=== PATIENT | male | born 1930 | race Caucasian/White ===

== ENCOUNTER 2017-02-22 19:52 | Observation (INO) | payer MEDICARE ==
[2017-02-22] MEDS ORDERED: Sodium Chloride 0.9% 10 ML Syringe FLUSH PRN (20:17)
[2017-02-22] MEDS ORDERED: cefTRIAXone 500 MG Vial IVPUSH ONE (21:54)
[2017-02-22] MEDS ORDERED: Azithromycin 500 MG in Sodium Chloride 0.9% 250 ML IV SCH (22:00)
[2017-02-22] MEDS ORDERED: Sodium Chloride 0.9% 250 ML IV SCH (22:30)
[2017-02-22] MEDS ORDERED: cefTRIAXone 1,000 MG in Sodium Chloride 0.9% 50 ML IV ONE (22:30)
[2017-02-22] MEDS ORDERED: OLANZapine 10 MG Vial IM PRN (22:37)
--- NOTE | 2017-02-23 02:48 | ER ---
DATE SEEN: 02/22/2017 TIME SEEN: 2030 hours. REASON FOR VISIT: Chills. HISTORY OF PRESENT ILLNESS: This is an 86-year-old male with chills that started tonight, but over the last 2 days he has been weak and difficult to take care of at home. No fever. His mentation was noted to be a little different today saying that he feels like he was flying. He denies any chest pain. No cough. No fever. PAST MEDICAL HISTORY: Dementia, coronary artery disease, hyperlipidemia, and CHF. CURRENT MEDICATIONS: Please see the nurse's notes. PHYSICAL EXAMINATION: GENERAL: He is not in distress. VITAL SIGNS: His blood pressure is 157/76, pulse 68, temp 97.7, oxygen 97% on room air. EARS, NOSE, and THROAT: Negative. CHEST: Clear with some crackles on the lower bases on the right. ABDOMEN: Soft. EXTREMITIES: No edema. MENTAL STATUS: Alert. LABORATORY DATA: Normal white cell count. Sodium is 134, creatinine is 1.6. Chest x-ray revealed possibly an infiltrate on the right side. IMPRESSION: Community-acquired pneumonia. His PSI is about 85. PLAN: I will admit him for IV antibiotic and observation for a day or so, I may be possibly discharge him tomorrow. /[id number] LUIS ANTONIO/BREANNA
--- NOTE | 2017-02-23 09:22 | PCM.HP ---
H&P History of Present Illness - General Date of Service: 02/23/17 Admit Problem/Dx: Admission Diagnosis/Problem Admission Diagnosis/Problem Pneumonia Source of Information: Family History Limitations: Reports: Altered Mental Status - History of Present Illness Initial Comments - Free Text/Narative: 86-year-old male from home, admitted last night because of acute pneumonia. He presented to the ER with the family with chills rigors, and alteration of his mental status. He also complained of generalized weakness for 2 days but there was no report of any fever or cough. He did however have some shortness of breath on ambulation. He has a history of CHF, CAD, dementia, hypertension and typically doctors at the [facility]. - Related Data Allergies/Adverse Reactions: Allergies Allergy/AdvReac Type Severity Reaction Status Date / Time lisinopril Allergy Cannot Verified 02/23/17 01:50 Remember Home Medications: Home Meds Albuterol Sulfate 2.5 mg IH Q6H PRN 02/23/17 [History] Carbidopa/Levodopa [Sinemet 25-100 mg Tablet] 2 tab PO BEDTIME 02/23/17 [History ] Gabapentin [Neurontin] 100 mg PO BEDTIME 02/23/17 [History] Hydrochlorothiazide 12.5 mg PO DAILY 02/23/17 [History] Losartan [Cozaar] 50 mg PO DAILY 02/23/17 [History] Metoprolol Tartrate 50 mg PO BID 02/23/17 [History] Rivaroxaban [Xarelto] 20 mg PO DAILY 02/23/17 [History] Past Medical History Cardiovascular History: Reports: Aneurysm, High cholesterol, Hypertension, [place], Stents Genitourinary History: Reports: Urinary incontinence Musculoskeletal History: Reports: Other (see below) Other Musculoskeletal History: restless leg syndrome Neurological History: Reports: Alzheimers disease, TIA Psychiatric History: Reports: Anxiety, Dementia - Infectious Disease History Infectious Disease History: Reports: Chicken pox, Measles, Shingles - Past Surgical History Cardiovascular Surgical History: Reports: AAA repair, Coronary artery stent GI Surgical History: Reports: Appendectomy, Other (see below) Other GI Surgeries/Procedures: exploratory surg Musculoskeletal Surgical History: Reports: Other (see below) Other Musculoskeletal Surgeries/Procedures:: bone graft from leg to arm Social & Family History - Tobacco Use Smoking Status *Q: Former Smoker Used Tobacco, but Quit: Yes Month Tobacco Last Used: 1984 Second Hand Smoke Exposure: No - Caffeine Use Caffeine Use: Reports: Coffee - Recreational Drug Use Recreational Drug Use: No H&P Review of Systems - Review of Systems: Review Of Systems: ROS reveals no pertinent complaints other than HPI. Exam - Exam Exam: See Below - Vital Signs Vital Signs: Last Vital Signs Temp 98 F 02/22/17 22:15 Pulse 56 L 02/23/17 05:45 Resp 20 02/23/17 05:45 BP 137/74 02/22/17 22:15 Pulse Ox 95 02/23/17 05:45 Weight: 87.18 kg - Exam General: Alert, Oriented, 4 HEENT: PERRLA, Hearing Intact, Mucosa Moist & Interior, Nares Patent, Normal Nasal Septum, Posterior Pharynx Clear, Conjunctiva Clear, EOMI, EACs Clear, TMs Clear Neck: Supple, Trachea Midline, 2 Lungs: Clear to Auscultation, Normal Respiratory Effort Cardiovascular: Regular Rate, Regular Rhythm Abdomen: Normal Bowel Sounds, Soft (Male) Exam: Deferred Rectal (Males) Exam: Deferred Back Exam: Normal Inspection, Full Range of Motion, NT Extremities: 3, Normal Inspection, 10 Skin: Warm, Dry, Intact Neurological: Cranial Nerves Intact, Reflexes Equal Bilateral Neuro Extensive - Mental Status: Disorientation to Time Neuro Extensive - Motor, Sensory, Reflexes: CN II-XII Intact, Normal Gait, Normal Reflexes Psychiatric: Normal Affect, Anxious - Patient Data Lab Results last 24 hrs: Laboratory Results - last 24 hr 02/23/17 02/23/17 Range/Units 06:30 06:30 WBC 7.1 (4.5-12.0) X10-3/uL RBC 4.69 (4.30-5.75) x10(6)uL Hgb 14.1 (11.5-15.5) g/dL Hct 41.8 (30.0-51.3) % MCV 89.2 (80-96) fL MCH 30.1 (27.7-33.6) pg MCHC 33.7 (32.2-35.4) g/dL RDW 12.2 (11.5-15.5) % Plt Count 176 (125-369) X10(3)uL MPV 8.4 (7.4-10.4) fL Neut % (Auto) 74.0 (46-82) % Lymph % (Auto) 16.6 (13-37) % [place] % (Auto) 6.7 (4-12) % Eos % (Auto) 2 (1.0-5.0) % Baso % (Auto) 1 (0-2) % Neut # (Auto) 5.3 (1.6-8.3) # Lymph # (Auto) 1.2 (0.6-5.0) # [place] # (Auto) 0.5 (0.0-1.3) # Eos # (Auto) 0.1 (0.0-0.8) # Baso # (Auto) 0.0 (0.0-0.2) # Sodium 135 (135-145) mmol/L Potassium 3.8 (3.5-5.3) mmol/L Chloride 103 (100-110) mmol/L Carbon Dioxide 24 (23-29) mmol/L BUN 29 H (8-23) mg/dL Creatinine 1.4 H (0.6-1.3) mg/dL Est Cr Clr Drug Dosing 32.30 mL/min Estimated GFR (MDRD) 48 L (>60) BUN/Creatinine Ratio 20.7 H (9-20) Glucose 112 (80-116) mg/dL Calcium 9.1 (8.6-10.2) mg/dL Total Bilirubin 0.7 (0.1-1.3) mg/dL AST 30 H (5-27) IU/L ALT 13 L (14-26) IU/L Alkaline Phosphatase 43 L (56-112) IU/L Total Protein 7.3 (6.0-8.0) g/dL Albumin 4.2 (3.2-4.6) g/dL Globulin 3.1 g/dL Albumin/Globulin Ratio 1.4 Result Diagrams: 02/23/17 06:30 02/23/17 06:30 *Q Meaningful Use (ADM) - VTE *Q VTE Criteria *Q: - Stroke *Q Stroke Criteria *Q: - AMI *Q AMI Criteria *Q: - Problem List (1) Community acquired bacterial pneumonia SNOMED Code(s): 771175381, 725715098 ICD Code: J15.9 - UNSPECIFIED BACTERIAL PNEUMONIA Status: Acute Current Visit: Yes (2) Dementia SNOMED Code(s): 47379358 ICD Code: F03.90 - UNSPECIFIED DEMENTIA WITHOUT BEHAVIORAL DISTURBANCE Status: Acute Current Visit: Yes Qualifiers: Dementia type: Alzheimer's disease (3) CAD (coronary artery disease) SNOMED Code(s): 84239918 ICD Code: I25.10 - ATHSCL HEART DISEASE OF [place] CORONARY ARTERY W/O ANG PCTRS Status: Chronic Current Visit: Yes Problem List Initiated/Reviewed/Updated: Yes Orders Last 24hrs: Active Orders 24 hr Category Date Time Status OLANZapine [ZyPREXA] Med 02/22/17 22:37 Active 5 mg IM Q6H PRN Sodium Chloride 0.9% [Normal Saline] 150 ml Med 02/22/17 23:30 Active IV ASDIRECTED Sodium Chloride 0.9% [Normal Saline] 250 ml Med 02/22/17 22:30 Active IV ASDIRECTED Medication Orders Azithromycin 500 mg/ Sodium (Chloride) 250 mls @ 250 mls/hr IV Q24H INGE Last Admin: 02/22/17 23:24 Dose: 250 mls/hr Sodium Chloride (Normal Saline) 250 mls @ 100 mls/hr IV ASDIRECTED INGE Last Admin: 02/22/17 22:35 Dose: 100 mls/hr Sodium Chloride (Normal Saline) 150 mls @ 100 mls/hr IV ASDIRECTED INGE Olanzapine (Zyprexa) 5 mg IM Q6H PRN PRN Reason: Agitation Sodium Chloride (Saline Flush) 10 ml FLUSH ASDIRECTED PRN PRN Reason: Keep Vein Open Last Admin: 02/22/17 21:14 Dose: 10 ml Assessment/Plan Comment:: This morning he feels better, he denies any chest pain chills,or a cough. He's been afebrile all night and slept well. His creatinine has come down to 1.4. I will discharge him home on oral azithromycin to take 250 mg daily for the next 4 days.He should seek he regular physician next week or return to the ED with any worsening symptoms.
[2017-02-23 10:25] VITALS: BP 124/72
--- NOTE | 2017-02-26 12:31 | CR ---
INDICATION: Weakness, shaky. CHEST: Portable AP upright view of the chest 02/22/2017, was compared with and 01/06/2013, revealing the heart to appear prominent in size, but not grossly enlarged, allowing for the AP positioning and poor inspiration. The aorta is tortuous and calcified. Overlying EKG leads are noted. An active infiltrate or effusion was not identified. Lungs appear to be somewhat hyperaerated, suggesting COPD - correlate clinically. IMPRESSION: No acute process. Findings as noted above. MTDD
== END 2017-02-23 10:15 | disposition home health service (06) ==
LOC: FB.ED 19:52 → FB.MS 21:54
PROVIDERS: ADMIT Family Medicine; ATTEND Family Medicine
DX: J15.9 Unspecified bacterial pneumonia (principal); F03.90 Unspecified dementia, unspecified severity, without behavioral disturbance, psychotic disturbance, mood disturbance, and anxiety; I25.10 Atherosclerotic heart disease of native coronary artery without angina pectoris; Z95.5 Presence of coronary angioplasty implant and graft; Z90.49 Acquired absence of other specified parts of digestive tract; Z98.890 Other specified postprocedural states; I10 Essential (primary) hypertension; F41.9 Anxiety disorder, unspecified; Z79.899 Other long term (current) drug therapy; Z87.891 Personal history of nicotine dependence; Z88.8 Allergy status to other drugs, medicaments and biological substances
CPT/HCPCS: 36415; 71010; 80048; 80053; 83880; 84484; 85025; 93005; 96365; 96367; 99284; G0378; J0456; J0696; J7050; 99219

== ENCOUNTER 2017-07-12 16:32 | Observation (INO) | payer MEDICAID, MEDICARE, OTHER ==
[2017-07-12] MEDS ORDERED: Sodium Chloride 0.9% 500 ML IV ONE (17:01)
--- NOTE | 2017-07-12 17:07 | EDM.PDOC ---
ED HPI GENERAL MEDICAL PROBLEM - General Stated Complaint: SYNCOPE Time Seen by Provider: 07/12/17 16:32 Source of Information: Reports: Patient, EMS History Limitations: Reports: Altered Mental Status, Physical Impairment - History of Present Illness INITIAL COMMENTS - FREE TEXT/NARRATIVE: 86 y.o.w.m. with H/O Dementia, Alzheimer type, COPD came to the ed by EMS from [facility], after he fell while standing in the kitchen, unwitnessed. Pt passed out a year ago while being a passenger in a car. As per daughter in law, pt was unresponsive for a few sec(?). pt ambulated before the event well, does not use a walker. He has a h/o HTN and takes three BP meds for that. Pt has no constitutional complains, no N/V/D, he is on Xaralto for CAD. On arrival , his vitals were BP 74/55 Pulse 68 BPM pulse ox 96% on RA Onset: Today Onset Date: 07/12/17 Duration: Hour(s):, Constant Location: Reports: Generalized Severity: Moderate Improves with: Reports: Rest Worsens with: Reports: Movement Context: Reports: Other (standing in the kitchen) Associated Symptoms: Reports: Confusion denies pain Pain Score (Numeric/FACES): 0 - Related Data Allergies Allergy/AdvReac Type Severity Reaction Status Date / Time lisinopril Allergy Cannot Verified 07/12/17 17:06 Remember Home Meds: Home Meds Albuterol Sulfate 2.5 mg IH Q6H PRN 02/23/17 [History] Carbidopa/Levodopa [Sinemet 25-100 mg Tablet] 2 tab PO BEDTIME 02/23/17 [History ] Gabapentin [Neurontin] 100 mg PO BEDTIME 02/23/17 [History] Hydrochlorothiazide 12.5 mg PO DAILY 02/23/17 [History] Losartan [Cozaar] 50 mg PO DAILY 02/23/17 [History] Metoprolol Tartrate 100 mg PO BID 02/23/17 [History] Rivaroxaban [Xarelto] 20 mg PO DAILY 02/23/17 [History] Acetaminophen 500 mg PO BID 07/12/17 [History] Mirtazapine 7.5 mg PO BEDTIME 07/12/17 [History] Past Medical History Cardiovascular History: Reports: Aneurysm, High Cholesterol, Hypertension, [place], Stents Genitourinary History: Reports: Urinary Incontinence Musculoskeletal History: Reports: Other (See Below) Other Musculoskeletal History: restless leg syndrome Neurological History: Reports: Alzheimers Disease, TIA Psychiatric History: Reports: Anxiety, Dementia - Infectious Disease History Infectious Disease History: Reports: Chicken Pox, Measles, Shingles - Past Surgical History Cardiovascular Surgical History: Reports: AAA Repair, Coronary Artery Stent GI Surgical History: Reports: Appendectomy, Other (See Below) Musculoskeletal Surgical History: Reports: Other (See Below) Social & Family History - Tobacco Use Smoking Status *Q: Former Smoker Used Tobacco, but Quit: Yes Month Tobacco Last Used: 1984 Second Hand Smoke Exposure: No - Caffeine Use Caffeine Use: Reports: Coffee - Recreational Drug Use Recreational Drug Use: No ED ROS GENERAL - Review of Systems Review Of Systems: Unable To Obtain ED EXAM, GENERAL - Physical Exam Exam: See Below Exam Limited By: Altered Mental Status General Appearance: Alert, WD/WN, No Apparent Distress Eye Exam: Bilateral Eye: Normal Inspection Ears: Normal External Exam Ear Exam: Bilateral Ear: Auricle Normal Nose: Normal Inspection, Normal Mucosa Throat/Mouth: Normal Lips, Normal Voice, No Airway Compromise, Other (decr. moisture ) Head: Atraumatic, Normocephalic Neck: Normal Inspection, Supple, Non-Tender, Full Range of Motion Respiratory/Chest: No Respiratory Distress, Lungs Clear (copd poor insp effort) Cardiovascular: Normal Peripheral Pulses, Regular Rate, Rhythm Peripheral Pulses: 1+: Femoral (L), Femoral (R) GI/Abdominal: Normal Bowel Sounds, Soft, Non-Tender (Male) Exam: Deferred Rectal (Males) Exam: Deferred Back Exam: Normal Inspection, Full Range of Motion Extremities: Normal Inspection, Normal Range of Motion Neurological: Alert, CN II-XII Intact, Confused, Memory Loss Remote Events, Other (pt is able to keep his upper and lower extremities up for >5 sec. No pronator drift) Psychiatric: Normal Affect, Normal Mood Skin Exam: Warm, Dry, Intact Lymphatic: No Adenopathy EKG INTERPRETATION EKG Date: 07/12/17 Time: 16:50 Rhythm: NSR Rate (Beats/Min): 68 [place]: Normal P-Wave: Present QRS: Normal ST-T: Normal QT: Normal Comparison: NA - No Prior EKG EKG Interpretation Comments: Low voltage ECG Course - Vital Signs Text/Narrative:: 86 y.o.w.m. with H/O Dementia, Alzheimer type, COPD came to the ed by EMS from [facility], after he fell while standing in the kitchen, unwitnessed. Pt passed out a year ago while being a passenger in a car. As per daughter in law, pt was unresponsive for a few sec(?). pt ambulated before the event well, does not use a walker. He has a h/o HTN and takes three BP meds for that. Pt has no constitutional complains, no N/V/D, he is on Xaralto for CAD. On arrival , his vitals were BP 74/55 Pulse 68 BPM pulse ox 96% on RA PE: WNWD 86 y.o.w.m. NAD No focal weakness, hypotension confused to time and place, not to person ECG: Low voltage ECG rate 68 Labs: CBC nl, BUN 50 Cr 1.9 GFR 34 Na 133 K 3.8 INR 1.15 Troponin 0.01 CK 181 BUN 97 Imaging: CT head and neck: NAD. 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 Hold Metoprolol, HCTZ and Losartan Last Recorded V/S: Last Vital Signs Temp 36.3 C 07/13/17 03:00 Pulse 44 L 07/13/17 03:00 Resp 16 07/13/17 03:00 BP 128/74 07/13/17 03:00 Pulse Ox 97 07/13/17 03:00 Orthostatic Blood Pressure [ 100/65 Standing] Orthostatic Blood Pressure [ 104/85 Sitting] Orthostatic Blood Pressure [ 93/52 Supine] - Orders/Labs/Meds Orders: Active Orders 24 hr Category Date Time Status Cardiac Monitoring [RC] 06,14,22 Care 07/12/17 17:04 Active Orthostatic Vital Signs [RC] ASDIRECTED Care 07/12/17 17:52 Active CXR [Chest 1V Frontal] [CR] Stat Exams 07/12/17 17:02 Taken Cervical Spine wo Cont [CT] Stat Exams 07/12/17 16:55 Taken Head wo Cont [CT] Stat Exams 07/12/17 16:55 Taken EKG 12 Lead [EK] Routine Ther 07/12/17 16:55 Ordered Medication Orders Acetaminophen (Tylenol Extra Strength) 500 mg PO BID REPLACED BY [facility] Last Admin: 07/12/17 22:03 Dose: 500 mg Albuterol (Proventil Neb Soln) 2.5 mg NEB Q6H PRN PRN Reason: Dyspnea Albuterol/Ipratropium (Duoneb 3.0-0.5 Mg/3 Ml) 3 ml INH ONETIME PRN PRN Reason: Shortness Of Breath/wheezing Carbidopa/Levodopa (Sinemet 25-100 Mg) 2 tab PO BEDTIME REPLACED BY [facility] Last Admin: 07/12/17 22:03 Dose: 2 tab Docusate Sodium (Colace) 100 mg PO BID PRN PRN Reason: Constipation Gabapentin (Neurontin) 100 mg PO BEDTIME REPLACED BY [facility] Last Admin: 07/12/17 22:02 Dose: 100 mg Sodium Chloride (Normal Saline) 1,000 mls @ 125 mls/hr IV ASDIRECTED REPLACED BY [facility] Last Admin: 07/13/17 02:48 Dose: 125 mls/hr Infusion: 07/13/17 02:25 Dose: 125 mls/hr Admin: 07/12/17 18:25 Dose: 125 mls/hr Mirtazapine (Remeron) 7.5 mg PO BEDTIME REPLACED BY [facility] Non-Formulary Medication (Rivaroxaban [Xarelto]) 20 mg PO DAILY REPLACED BY [facility] Ondansetron HCl (Zofran) 4 mg IV Q4H PRN PRN Reason: Nausea/Vomiting Sodium Chloride (Saline Flush) 10 ml FLUSH ASDIRECTED PRN PRN Reason: Keep Vein Open Labs: Laboratory Tests 07/12/17 07/12/17 07/12/17 Range/Units 17:25 17:25 17:25 WBC 5.6 (4.5-12.0) X10-3/uL RBC 4.31 (4.30-5.75) x10(6)uL Hgb 13.2 (11.5-15.5) g/dL Hct 37.8 (30.0-51.3) % MCV 87.8 (80-96) fL MCH 30.6 (27.7-33.6) pg MCHC 34.8 (32.2-35.4) g/dL RDW 13.2 (11.5-15.5) % Plt Count 219 (125-369) X10(3)uL MPV 7.6 (7.4-10.4) fL Neut % (Auto) 71.5 (46-82) % Lymph % (Auto) 16.8 (13-37) % [place] % (Auto) 8.4 (4-12) % Eos % (Auto) 3 (1.0-5.0) % Baso % (Auto) 0 (0-2) % Neut # (Auto) 4.0 (1.6-8.3) # Lymph # (Auto) 0.9 (0.6-5.0) # [place] # (Auto) 0.5 (0.0-1.3) # Eos # (Auto) 0.2 (0.0-0.8) # Baso # (Auto) 0.0 (0.0-0.2) # PT 11.6 H (8.7-11.1) INR 1.15 H (0.89-1.13) Sodium 133 L (135-145) mmol/L Potassium 4.4 (3.5-5.3) mmol/L Chloride 101 (100-110) mmol/L Carbon Dioxide 21 L (23-29) mmol/L BUN 50 H D (8-23) mg/dL Creatinine 1.9 H (0.6-1.3) mg/dL Est Cr Clr Drug Dosing 15.92 mL/min Estimated GFR (MDRD) 34 L (>60) BUN/Creatinine Ratio 26.3 H (9-20) Glucose 114 (80-116) mg/dL Calcium 9.0 (8.6-10.2) mg/dL Creatine Kinase 181 H (60-160) IU/L Troponin I (0.02-0.06) NG/ML B-Natriuretic Peptide (0-100) pg/mL 07/12/17 07/12/17 Range/Units 17:25 17:25 WBC (4.5-12.0) X10-3/uL RBC (4.30-5.75) x10(6)uL Hgb (11.5-15.5) g/dL Hct (30.0-51.3) % MCV (80-96) fL MCH (27.7-33.6) pg MCHC (32.2-35.4) g/dL RDW (11.5-15.5) % Plt Count (125-369) X10(3)uL MPV (7.4-10.4) fL Neut % (Auto) (46-82) % Lymph % (Auto) (13-37) % [place] % (Auto) (4-12) % Eos % (Auto) (1.0-5.0) % Baso % (Auto) (0-2) % Neut # (Auto) (1.6-8.3) # Lymph # (Auto) (0.6-5.0) # [place] # (Auto) (0.0-1.3) # Eos # (Auto) (0.0-0.8) # Baso # (Auto) (0.0-0.2) # PT (8.7-11.1) INR (0.89-1.13) Sodium (135-145) mmol/L Potassium (3.5-5.3) mmol/L Chloride (100-110) mmol/L Carbon Dioxide (23-29) mmol/L BUN (8-23) mg/dL Creatinine (0.6-1.3) mg/dL Est Cr Clr Drug Dosing mL/min Estimated GFR (MDRD) (>60) BUN/Creatinine Ratio (9-20) Glucose (80-116) mg/dL Calcium (8.6-10.2) mg/dL Creatine Kinase (60-160) IU/L Troponin I 0.01 L (0.02-0.06) NG/ML B-Natriuretic Peptide 79 (0-100) pg/mL Meds: Medications Generic Name Dose Route Start Last Admin Trade Name Freq PRN Reason Stop Dose Admin Acetaminophen 500 mg 07/12/17 21:00 07/12/17 22:03 Tylenol Extra Strength PO 500 mg BID INGE Administration Albuterol 2.5 mg 07/12/17 18:23 Proventil Neb Soln NEB Q6H PRN Dyspnea Albuterol/Ipratropium 3 ml 07/12/17 18:18 Duoneb 3.0-0.5 Mg/3 Ml INH ONETIME PRN Shortness Of Breath/wheezing Carbidopa/Levodopa 2 tab 07/12/17 21:00 07/12/17 22:03 Sinemet 25-100 Mg PO 2 tab BEDTIME INGE Administration Docusate Sodium 100 mg 07/12/17 18:18 Colace PO BID PRN Constipation Gabapentin 100 mg 07/12/17 21:00 07/12/17 22:02 Neurontin PO 100 mg BEDTIME INGE Administration Sodium Chloride 1,000 mls @ 125 mls/hr 07/12/17 18:30 07/13/17 02:48 Normal Saline IV 125 mls/hr ASDIRECTED INGE Administration Mirtazapine 7.5 mg 07/13/17 21:00 Remeron PO BEDTIME INGE Non-Formulary Medication 20 mg 07/13/17 09:00 Rivaroxaban [Xarelto] PO DAILY INGE Ondansetron HCl 4 mg 07/12/17 18:18 Zofran IV Q4H PRN Nausea/Vomiting Sodium Chloride 10 ml 07/12/17 18:18 Saline Flush FLUSH ASDIRECTED PRN Keep Vein Open Discontinued Medications Generic Name Dose Route Start Last Admin Trade Name Freq PRN Reason Stop Dose Admin Sodium Chloride 500 mls @ 999 mls/hr 07/12/17 17:01 07/12/17 17:26 Normal Saline IV 07/12/17 17:31 999 mls/hr .BOLUS ONE Administration Mirtazapine Confirm 07/12/17 22:32 07/12/17 22:40 Remeron Administered 07/12/17 22:33 Not Given Dose 15 mg .ROUTE .STK-MED ONE Non-Formulary Medication 7.5 mg 07/12/17 21:00 07/12/17 22:39 Mirtazapine [Mirtazapine] PO 7.5 mg BEDTIME INGE Administration Departure - Departure Time of Disposition: 18:00 Disposition: Admitted As Inpatient 67 Condition: Fair Clinical Impression: Syncopal episodes Qualifiers: Syncope type: vasovagal syncope Qualified Code(s): R55 - Syncope and collapse - My Orders Last 24 Hours: My Active Orders 07/12/17 16:55 Cervical Spine wo Cont [CT] Stat Head wo Cont [CT] Stat EKG 12 Lead [EK] Routine 07/12/17 17:02 CXR [Chest 1V Frontal] [CR] Stat 07/12/17 17:04 Cardiac Monitoring [RC] ,,07/12/17 17:52 Orthostatic Vital Signs [RC] ASDIRECTED - Assessment/Plan Last 24 Hours: My Active Orders 07/12/17 16:55 Cervical Spine wo Cont [CT] Stat Head wo Cont [CT] Stat EKG 12 Lead [EK] Routine 07/12/17 17:02 CXR [Chest 1V Frontal] [CR] Stat 07/12/17 17:04 Cardiac Monitoring [RC] ,,07/12/17 17:52 Orthostatic Vital Signs [RC] ASDIRECTED
[2017-07-12] MEDS ORDERED: Albuterol/Ipratropium 3.0-0.5 MG/3 ML Neb Soln INH PRN (18:18)
[2017-07-12] MEDS ORDERED: Ondansetron 4 MG/2 ML SDV IV PRN (18:18)
[2017-07-12] MEDS ORDERED: Docusate Sodium 100 MG Cap PO PRN (18:18)
[2017-07-12] MEDS ORDERED: Sodium Chloride 0.9% 10 ML Syringe FLUSH PRN (18:18)
[2017-07-12] MEDS ORDERED: Albuterol 0.083% 2.5 MG/3 ML Neb Soln NEB PRN (18:23)
[2017-07-12] MEDS: Sodium Chloride 0.9% 1,000 ML IV SCH (18:25)
[2017-07-12] MEDS ORDERED: Gabapentin 100 MG Cap PO SCH (21:00)
[2017-07-12] MEDS ORDERED: Non-Formulary Medication 1 Each (Mirtazapine [Mirtazapine] 7.5 MG) PO SCH (21:00)
[2017-07-12] MEDS ORDERED: Carbidopa/Levodopa 25-100 MG Tab PO SCH (21:00)
[2017-07-12] MEDS: Acetaminophen 500 MG Tab PO SCH (22:03)
[2017-07-12] MEDS ORDERED: Mirtazapine 15 MG Tab ONE (22:32)
[2017-07-13] MEDS: Sodium Chloride 0.9% 1,000 ML IV SCH (02:48)
[2017-07-13] MEDS ORDERED: FLU Vacc QS 2017-18 (36mos UP)/PF 60 MCG/0.5 ML Syringe IM ONE (08:13)
[2017-07-13] MEDS: Acetaminophen 500 MG Tab PO SCH (08:49)
[2017-07-13] MEDS ORDERED: Non-Formulary Medication 1 Each (Rivaroxaban [Xarelto] 20 MG) PO SCH (09:00)
--- NOTE | 2017-07-13 09:06 | PCM.HP ---
H&P History of Present Illness - General Date of Service: 07/13/17 Admit Problem/Dx: Admission Diagnosis/Problem Admission Diagnosis/Problem Syncope and collapse History Limitations: Reports: Altered Mental Status - History of Present Illness Initial Comments - Free Text/Narative: 86-year-old male that was bloating from [facility] after syncope. Apparently he was standing the kitchen was passed out hypotension upon admission the emergency room.This morning,he has no symptoms and history taking is difficult from him because of Dementia.He has a history of hypertension, CAD and dementia that have been stable. denies pain Pain Score (Numeric/FACES): 0 - Related Data Allergies/Adverse Reactions: Allergies Allergy/AdvReac Type Severity Reaction Status Date / Time lisinopril Allergy Cannot Verified 07/12/17 17:06 Remember Home Medications: Home Meds Albuterol Sulfate 2.5 mg IH Q6H PRN 02/23/17 [History] Carbidopa/Levodopa [Sinemet 25-100 mg Tablet] 2 tab PO BEDTIME 02/23/17 [History ] Gabapentin [Neurontin] 100 mg PO BEDTIME 02/23/17 [History] Hydrochlorothiazide 12.5 mg PO DAILY 02/23/17 [History] Losartan [Cozaar] 50 mg PO DAILY 02/23/17 [History] Metoprolol Tartrate 50 mg PO BID 02/23/17 [History] Rivaroxaban [Xarelto] 20 mg PO DAILY 02/23/17 [History] Acetaminophen 500 mg PO BID 07/12/17 [History] Mirtazapine 3.75 mg PO BEDTIME 07/12/17 [History] Past Medical History HEENT History: Reports: Hard of Hearing, Impaired Vision Cardiovascular History: Reports: Aneurysm, High Cholesterol, Hypertension, [place], Stents Genitourinary History: Reports: Urinary Incontinence Musculoskeletal History: Reports: Other (See Below) Other Musculoskeletal History: restless leg syndrome Neurological History: Reports: Alzheimers Disease, TIA Psychiatric History: Reports: Anxiety, Dementia - Infectious Disease History Infectious Disease History: Reports: Chicken Pox, Measles, Shingles - Past Surgical History Cardiovascular Surgical History: Reports: AAA Repair, Coronary Artery Stent GI Surgical History: Reports: Appendectomy, Other (See Below) Musculoskeletal Surgical History: Reports: Other (See Below) Social & Family History - Family History Family Medical History: Unobtainable - Tobacco Use Smoking Status *Q: Former Smoker Used Tobacco, but Quit: Yes Month Tobacco Last Used: 1984 Second Hand Smoke Exposure: No - Caffeine Use Caffeine Use: Reports: Coffee - Recreational Drug Use Recreational Drug Use: No H&P Review of Systems - Review of Systems: Review Of Systems: ROS reveals no pertinent complaints other than HPI. Exam - Exam Exam: See Below - Vital Signs Vital Signs: Last Vital Signs Temp 97.4 F 07/13/17 03:00 Pulse 44 L 07/13/17 03:00 Resp 16 07/13/17 03:00 BP 128/74 07/13/17 03:00 Pulse Ox 97 07/13/17 03:00 Weight: 87.18 kg - Exam General: Alert HEENT: PERRLA Neck: Supple Lungs: Clear to Auscultation Cardiovascular: Regular Rate GI/Abdominal Exam: Normal Bowel Sounds (Male) Exam: No Hernia Rectal (Males) Exam: Deferred Back Exam: Normal Inspection, Full Range of Motion, NT Extremities: Normal Inspection, Normal Range of Motion, Non-Tender, No Pedal Edema, Normal Capillary Refill Skin: Warm, Dry, Intact Neurological: Cranial Nerves Intact, Reflexes Equal Bilateral Neuro Extensive - Mental Status: No: Alert, Oriented x3 Neuro Extensive - Motor, Sensory, Reflexes: CN II-XII Intact Psychiatric: Alert, Normal Affect - Patient Data Lab Results Last 24 hrs: Laboratory Results - last 24 hr 07/12/17 Range/Units 19:30 Urine Color Yellow (YELLOW) Urine Appearance Clear (CLEAR) Urine pH 6.0 (5.0-6.5) Ur Specific [place] 1.020 (1.010-1.025) Urine Protein Negative (NEGATIVE) mg/dL Urine Glucose (UA) Normal (NEGATIVE) mg/dL Urine Ketones Negative (NEGATIVE) mg/dL Urine Occult Blood Negative (NEGATIVE) Urine Nitrite Negative (NEGATIVE) Urine Bilirubin Negative (NEGATIVE) Urine Urobilinogen Normal (NEGATIVE) mg/dL Ur Leukocyte Esterase Negative (NEGATIVE) Urine RBC 0-5 (0) Urine WBC 0-5 (0) Ur Squamous Epith Cells Occasional (NS,R,O) Urine Bacteria Few H (NS) Result Diagrams: 07/12/17 17:25 07/12/17 17:25 EKG INTERPRETATION Rhythm: NSR *Q Meaningful Use (ADM) - VTE *Q VTE Criteria *Q: - Stroke *Q Stroke Criteria *Q: - AMI *Q AMI Criteria *Q: - Problem List (1) Syncopal episodes SNOMED Code(s): 868343898 ICD Code: R55 - SYNCOPE AND COLLAPSE Status: Acute Current Visit: Yes Qualifiers: Syncope type: vasovagal syncope Qualified Code(s): R55 - Syncope and collapse (2) Dementia SNOMED Code(s): 27752193 ICD Code: F03.90 - UNSPECIFIED DEMENTIA WITHOUT BEHAVIORAL DISTURBANCE Status: Acute Current Visit: No Qualifiers: Dementia type: Alzheimer's disease (3) CAD (coronary artery disease) SNOMED Code(s): 86852527 ICD Code: I25.10 - ATHSCL HEART DISEASE OF [place] CORONARY ARTERY W/O ANG PCTRS Status: Chronic Current Visit: No Qualifiers: Coronary Disease-Associated Artery/Lesion type: bypass graft Problem List Initiated/Reviewed/Updated: Yes Orders Last 24hrs: Active Orders 24 hr Category Date Time Status Acetaminophen [Tylenol Extra Strength] Med 07/12/17 21:00 Active 500 mg PO BID Albuterol [Proventil Neb Soln] Med 07/12/17 18:23 Active 2.5 mg NEB Q6H PRN Carbidopa/Levodopa [Sinemet 25-100 mg] Med 07/12/17 21:00 Active 2 tab PO BEDTIME Gabapentin [Neurontin] Med 07/12/17 21:00 Active 100 mg PO BEDTIME Mirtazapine [Remeron] Med 07/13/17 21:00 Active 7.5 mg PO BEDTIME Rivaroxaban [Xarelto] Med 07/13/17 09:00 Active 20 mg PO DAILY Sodium Chloride 0.9% [Normal Saline] 1,000 ml Med 07/12/17 18:30 Active IV ASDIRECTED Medication Orders Acetaminophen (Tylenol Extra Strength) 500 mg PO BID INGE Last Admin: 07/13/17 08:49 Dose: 500 mg Admin: 07/12/17 22:03 Dose: 500 mg Albuterol (Proventil Neb Soln) 2.5 mg NEB Q6H PRN PRN Reason: Dyspnea Albuterol/Ipratropium (Duoneb 3.0-0.5 Mg/3 Ml) 3 ml INH ONETIME PRN PRN Reason: Shortness Of Breath/wheezing Carbidopa/Levodopa (Sinemet 25-100 Mg) 2 tab PO BEDTIME [facility] Last Admin: 07/12/17 22:03 Dose: 2 tab Docusate Sodium (Colace) 100 mg PO BID PRN PRN Reason: Constipation Gabapentin (Neurontin) 100 mg PO BEDTIME [facility] Last Admin: 07/12/17 22:02 Dose: 100 mg Sodium Chloride (Normal Saline) 1,000 mls @ 125 mls/hr IV ASDIRECTED [facility] Last Admin: 07/13/17 02:48 Dose: 125 mls/hr Infusion: 07/13/17 02:25 Dose: 125 mls/hr Admin: 07/12/17 18:25 Dose: 125 mls/hr Mirtazapine (Remeron) 7.5 mg PO BEDTIME [facility] Non-Formulary Medication (Rivaroxaban [Xarelto]) 20 mg PO DAILY [facility] Last Admin: 07/13/17 08:49 Dose: 20 mg Ondansetron HCl (Zofran) 4 mg IV Q4H PRN PRN Reason: Nausea/Vomiting Sodium Chloride (Saline Flush) 10 ml FLUSH ASDIRECTED PRN PRN Reason: Keep Vein Open Assessment/Plan Comment:: Discharge the patient home today. We will discontinue some of his blood pressure medications
--- NOTE | 2017-07-13 09:27 | CT ---
INDICATION: Unwitnessed fall, dementia patient, no visible patel of trauma. CT HEAD WITHOUT CONTRAST ONLY: Serial contiguous 2.5 and 5 mm sections were obtained through the brain without contrast, and then they were repeated, due to motion. There is an area of encephalomalacia in the right temporal lobe with prominence of the sulci in that area, compatible with a previous thrombotic CVA. No shift of midline structures was identified. No bleeding site or hematoma was seen. There is some minimal decreased density areas in the white matter, suggesting minimal microvascular disease. Ventricles and sulci in general appear prominent, compatible with central atrophy, as well as cortical atrophy, of mild to moderate degree. Calcifications are noted in the internal carotid arteries. No definite cranial fracture site was identified. There is deviation of the nasal bones, which likely is on the basis of a previous fracture with healing and deformity. No definite sinus pathology of any significance could be identified in the paranasal or mastoid air cells. Degenerative changes are noted at the atlantoodontoid joint. IMPRESSION: 1. No acute intracranial abnormality. 2. 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 2. Generalized atrophy. Prominent ventricles compatible with central atrophy, as well as cortical atrophy. 3. Calcifications internal carotid arteries. Total exam DLP = 1,898.78 mGy-cm. MTDD
[2017-07-13 09:30] VITALS: BP 163/90
--- NOTE | 2017-07-13 09:37 | CT ---
INDICATION: Unwitnessed fall, dementia patient, no visible patel of trauma. CT CERVICAL SPINE: Spiral 2.5 mm axial sections were obtained through the cervical spine with sagittal and coronal reconstructions, revealing hypertrophic degenerative changes and disk disease at C3-4 and more prominently C4-5, C5-6, and C6-7, with disk disease also suggested at C7-T1, at which level there is a grade 1 anterolisthesis. Narrowing of the neural foramina is noted, most severely at C6-7 but also at C4-5, C5-6, and also C3-4 bilaterally. More severe narrowing appears to be present on the right than on the left. Hypertrophic degenerative changes at the uncinate joints are also noted at these levels and again are most severe at C5-6, C6-7, but also noted at C7-T1. Hypertrophic degenerative changes are also noted at the lateral masses. Hypertrophic degenerative changes and narrowing of the atlantoodontoid joint also noted with subchondral cystic changes present. Hypertrophic changes are also noted off the C2-3 vertebral bodies anteriorly, as well as at C3-4 and the rest of the levels. The prevertebral space appeared to be fairly normal with no finding to strongly suggest an acute fracture or dislocation identified. The visualized lung appeared normal. IMPRESSION: Degenerative changes and disk disease with impingement on the neural foramina, odontoid intact but with degenerative changes, with no fracture or dislocation. Total exam DLP = 571.54 mGy-cm. Report was called to Dr. Crouch at 1740 hours on 07/12/2017. [facility]
--- NOTE | 2017-07-13 09:40 | CR ---
INDICATION: Short of breath. CHEST: AP upright view of the chest revealed somewhat flattened diaphragm leaves with hyperaeration, suggesting COPD. Evidence of exogenous obesity is also noted. The heart appears somewhat enlarged. The aorta is tortuous and calcified. Overlying EKG leads are noted. An active infiltrate or effusion was not identified. IMPRESSION: 1. COPD. 2. ASHD. 3. Exogenous obesity. Report was called to Dr. Crouch at 1740 hours on 07/12/2017. [facility]
[2017-07-13] MEDS ORDERED: Mirtazapine 15 MG Tab PO SCH (21:00)
== END 2017-07-13 10:45 | disposition home health service (06) ==
LOC: FB.ED 16:32 → FB.MS 18:18
PROVIDERS: ADMIT Family Medicine; ATTEND Family Medicine
DX: R55 Syncope and collapse (principal); R14.0 Abdominal distension (gaseous); I95.9 Hypotension, unspecified; G30.9 Alzheimer's disease, unspecified; F02.80 Dementia in other diseases classified elsewhere, unspecified severity, without behavioral disturbance, psychotic disturbance, mood disturbance, and anxiety; I25.10 Atherosclerotic heart disease of native coronary artery without angina pectoris; I10 Essential (primary) hypertension; I25.2 Old myocardial infarction; E78.00 Pure hypercholesterolemia, unspecified; G25.81 Restless legs syndrome; F41.9 Anxiety disorder, unspecified; Z87.891 Personal history of nicotine dependence; Z88.8 Allergy status to other drugs, medicaments and biological substances; Z79.01 Long term (current) use of anticoagulants; Z79.899 Other long term (current) drug therapy; Z95.5 Presence of coronary angioplasty implant and graft; Z90.49 Acquired absence of other specified parts of digestive tract; Z98.890 Other specified postprocedural states; Z23 Encounter for immunization
CPT/HCPCS: 36415; 70450; 71010; 72125; 80048; 81001; 82550; 83880; 84484; 85025; 85610; 93005; 96360; 96361; 99285; A9270; G0008; G0378; J7040; 90686; 99219

== ENCOUNTER 2017-07-15 18:44 | Emergency (ER) | payer MEDICARE, MEDICAID ==
[2017-07-15 19:31] VITALS: BP 150/88
--- NOTE | 2017-07-15 20:31 | EDM.PDOC ---
ED HPI GENERAL MEDICAL PROBLEM - General Chief Complaint: Fever Stated Complaint: fever, vomiting Time Seen by Provider: 07/15/17 20:15 Source of Information: Reports: Patient History Limitations: Reports: No Limitations - History of Present Illness INITIAL COMMENTS - FREE TEXT/NARRATIVE: c/o T 100.6 pt d/c'ed from hospital 07/12 after for syncope, pt reported to have T 100.6 at [facility], has no fever here, in good spirits, son and his have no additional concerns pt with inc'd BUN/creat 07/12, however he appears to be in good fluid balance now , has been eating and drinking has a walker, usually carries it rather than using it CxR 07/12 with no infiltrates or effusion, did show COPD currently doing well and medically stable - Related Data Allergies Allergy/AdvReac Type Severity Reaction Status Date / Time lisinopril Allergy Cannot Verified 07/12/17 17:06 Remember Home Meds: Home Meds Albuterol Sulfate 2.5 mg IH Q6H PRN 02/23/17 [History] Carbidopa/Levodopa [Sinemet 25-100 mg Tablet] 2 tab PO BEDTIME 02/23/17 [History ] Gabapentin [Neurontin] 100 mg PO BEDTIME 02/23/17 [History] Hydrochlorothiazide 12.5 mg PO DAILY 02/23/17 [History] Rivaroxaban [Xarelto] 20 mg PO DAILY 02/23/17 [History] Acetaminophen 500 mg PO BID 07/12/17 [History] Mirtazapine 3.75 mg PO BEDTIME 07/12/17 [History] Past Medical History HEENT History: Reports: Hard of Hearing, Impaired Vision Cardiovascular History: Reports: Aneurysm, High Cholesterol, Hypertension, [place], Stents Genitourinary History: Reports: Urinary Incontinence Musculoskeletal History: Reports: Other (See Below) Other Musculoskeletal History: restless leg syndrome Neurological History: Reports: Alzheimers Disease, TIA Psychiatric History: Reports: Anxiety, Dementia - Infectious Disease History Infectious Disease History: Reports: Other (See Below) Other Infectious Disease History: unknown - Past Surgical History Cardiovascular Surgical History: Reports: AAA Repair, Coronary Artery Stent GI Surgical History: Reports: Appendectomy, Other (See Below) Other GI Surgeries/Procedures: hx past exploritory surgery long ago Musculoskeletal Surgical History: Reports: Other (See Below) Social & Family History - Family History Family Medical History: Unobtainable - Tobacco Use Smoking Status *Q: Former Smoker Used Tobacco, but Quit: Yes Month Tobacco Last Used: unknown Second Hand Smoke Exposure: No - Caffeine Use Caffeine Use: Reports: None - Alcohol Use Days Per Week of Alcohol Use: 0 - Recreational Drug Use Recreational Drug Use: No ED ROS GENERAL - Review of Systems Review Of Systems: See Below Constitutional: Reports: No Symptoms HEENT: Reports: No Symptoms Respiratory: Reports: No Symptoms Cardiovascular: Reports: No Symptoms Endocrine: Reports: No Symptoms GI/Abdominal: Reports: No Symptoms : Reports: No Symptoms Musculoskeletal: Reports: No Symptoms Skin: Reports: No Symptoms Neurological: Reports: No Symptoms Psychiatric: Reports: No Symptoms Hematologic/Lymphatic: Reports: No Symptoms Immunologic: Reports: No Symptoms ED EXAM, GENERAL - Physical Exam Exam: See Below Exam Limited By: No Limitations General Appearance: WD/WN, No Apparent Distress Ears: Normal External Exam Nose: Normal Inspection, Normal Mucosa Throat/Mouth: Normal Inspection, Normal Voice, No Airway Compromise Head: Atraumatic, Normocephalic Neck: Normal Inspection, Supple, Non-Tender, Full Range of Motion Respiratory/Chest: No Respiratory Distress, Lungs Clear, Normal Breath Sounds, No Accessory Muscle Use, Chest Non-Tender, Other (lungs clear, takes DB on request, conversant, no dyspnea, no cough) Cardiovascular: Regular Rate, Rhythm, No Edema, No Gallop, No Rub GI/Abdominal: Soft, Non-Tender Back Exam: Normal Inspection, Full Range of Motion, NT Extremities: Normal Inspection, Normal Range of Motion, Non-Tender, No Pedal Edema Neurological: Alert, Oriented, CN II-XII Intact, No Motor/Sensory Deficits Psychiatric: Normal Affect, Normal Mood Skin Exam: Warm, Dry, Intact, Normal Color, No Rash Lymphatic: No Adenopathy Course - Vital Signs Last Recorded V/S: Last Vital Signs Temp 36.7 C 07/15/17 19:00 Pulse 105 H 07/15/17 19:00 Resp 18 07/15/17 19:00 BP 150/88 H 07/15/17 19:00 Pulse Ox 96 07/15/17 19:00 Departure - Departure Time of Disposition: 20:35 Disposition: Home, Self-Care 01 Condition: Good Clinical Impression: Low grade fever - Discharge Information Instructions: Fever, Adult, [id number] Referrals: Bertha Camargo NP [Primary Care Provider] - Forms: ED Department Discharge Additional Instructions: Continue current meds. Eat 3 meals a day. Maintain fluids. See your doctor as previously scheduled. Return to ED if you are feeling worse.
== END 2017-07-15 20:45 | disposition home or self-care (01) ==
LOC: FB.ED 18:44
DX: R50.9 Fever, unspecified (principal); E78.00 Pure hypercholesterolemia, unspecified; I10 Essential (primary) hypertension; I25.2 Old myocardial infarction; F02.80 Dementia in other diseases classified elsewhere, unspecified severity, without behavioral disturbance, psychotic disturbance, mood disturbance, and anxiety; F41.9 Anxiety disorder, unspecified; G30.9 Alzheimer's disease, unspecified; Z86.73 Personal history of transient ischemic attack (TIA), and cerebral infarction without residual deficits; Z79.899 Other long term (current) drug therapy; Z88.8 Allergy status to other drugs, medicaments and biological substances; Z95.5 Presence of coronary angioplasty implant and graft; Z87.891 Personal history of nicotine dependence
CPT/HCPCS: 99283; 99284

== ENCOUNTER 2018-01-11 15:06 | Inpatient (IN) | payer MEDICAID, MEDICARE ==
--- NOTE | 2018-01-11 15:35 | EDM.PDOC ---
ED HPI GENERAL MEDICAL PROBLEM - General Stated Complaint: FELL-INJURED L LEG Time Seen by Provider: 01/11/18 15:06 Source of Information: Reports: Patient, EMS, Family History Limitations: Reports: Altered Mental Status - History of Present Illness INITIAL COMMENTS - FREE TEXT/NARRATIVE: 87 y.o.w.m with dementia, 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 Pt was not able to ambulate. Pt C/O left hip and left shoulder pain. No N/V/D or any other obvious acute medical issues BP 134/ 66 pulse 50 RR 18 Temp 36.8 O2 sat 96% on RA Onset Date: 01/11/18 Onset Time: 12:00 Duration: Hour(s):, Constant Location: Reports: Upper Extremity, Left, Lower Extremity, Left Quality: Reports: Ache Severity: Severe Improves with: Reports: Rest Worsens with: Reports: Movement Context: Reports: Trauma (fall) Left Hip Pain Score (Numeric/FACES): 4 - Related Data Allergies Allergy/AdvReac Type Severity Reaction Status Date / Time lisinopril Allergy Cannot Verified 07/12/17 17:06 Remember Home Meds: Home Meds Acetaminophen [Acetaminophen Extra Strength] 1,000 mg PO 08,14,20 01/11/18 [ History] Albuterol [Proventil Neb Soln] 2.5 mg INH 08,20 01/11/18 [History] Albuterol [Proventil Neb Soln] 2.5 mg INH Q6H PRN 01/11/18 [History] DULoxetine HCl [Duloxetine HCl] 20 mg PO BEDTIME 01/11/18 [History] Divalproex Sodium [Depakote Sprinkle] 375 mg PO 08,14,20 01/11/18 [History] Gabapentin 1 ml PO Q2H PRN 01/11/18 [History] Gabapentin 4 ml PO 08,12,16,20 01/11/18 [History] Haloperidol [Haldol] 0.5 mg PO 12,20 01/11/18 [History] Hydrochlorothiazide 12.5 mg PO DAILY 01/11/18 [History] LORazepam 0.5 mg PO 12,17 01/11/18 [History] Mirtazapine 15 mg PO BEDTIME 01/11/18 [History] Past Medical History HEENT History: Reports: Hard of Hearing, Impaired Vision Cardiovascular History: Reports: Aneurysm, High Cholesterol, Hypertension, [place], Stents Genitourinary History: Reports: Urinary Incontinence Musculoskeletal History: Reports: Other (See Below) Other Musculoskeletal History: restless leg syndrome Neurological History: Reports: Alzheimers Disease, TIA Psychiatric History: Reports: Anxiety, Dementia - Infectious Disease History Infectious Disease History: Reports: Other (See Below) Other Infectious Disease History: unknown - Past Surgical History Cardiovascular Surgical History: Reports: AAA Repair, Coronary Artery Stent GI Surgical History: Reports: Appendectomy, Other (See Below) Other GI Surgeries/Procedures: hx past exploritory surgery long ago Musculoskeletal Surgical History: Reports: Other (See Below) Social & Family History - Family History Family Medical History: Unobtainable - Tobacco Use Smoking Status *Q: Former Smoker Used Tobacco, but Quit: Yes Month/Year Tobacco Last Used: unknown Second Hand Smoke Exposure: No - Caffeine Use Caffeine Use: Reports: None - Alcohol Use Days Per Week of Alcohol Use: 0 - Recreational Drug Use Recreational Drug Use: No Review of Systems - Review of Systems Review Of Systems: Unable To Obtain (dementia) ED EXAM, GENERAL - Physical Exam Exam: See Below Exam Limited By: Altered Mental Status General Appearance: Alert, WD/WN, Mild Distress Eye Exam: Bilateral Eye: Normal Inspection Ears: Normal External Exam Ear Exam: Bilateral Ear: Auricle Normal Nose: Normal Inspection, Normal Mucosa Throat/Mouth: Normal Inspection, Normal Lips Head: Atraumatic, Normocephalic Neck: Normal Inspection, Supple, Non-Tender, Full Range of Motion Respiratory/Chest: No Respiratory Distress, Lungs Clear, Normal Breath Sounds ( poor ins effort) Cardiovascular: Normal Peripheral Pulses, Regular Rate, Rhythm, No Edema Peripheral Pulses: 1+: Brachial (R) GI/Abdominal: Normal Bowel Sounds, Soft, Non-Tender, No Organomegaly (Male) Exam: No Hernia Rectal (Males) Exam: Deferred Back Exam: Normal Inspection, Full Range of Motion Extremities: Limited Range of Motion (due to pain left hip and left shoulder) Neurological: Alert, CN II-XII Intact, Abnormal Gait (unable to ambulate due to left hip pain) Psychiatric: Normal Affect, Normal Mood Skin Exam: Warm, Dry, Intact, Normal Color, No Rash Lymphatic: No Adenopathy EKG INTERPRETATION EKG Date: 01/11/18 Time: 15:20 Rhythm: NSR Rate (Beats/Min): 50 [place]: Normal P-Wave: Present QRS: Normal ST-T: Normal QT: Normal Comparison: NA - No Prior EKG Course - Vital Signs Text/Narrative:: 87 y.o.w.m with dementia, 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 Pt was not able to ambulate. Pt C/O left hip and left shoulder pain. No N/V/D or any other obvious acute medical issues BP 134/ 66 pulse 50 RR 18 Temp 36.8 O2 sat 96% on RA PE: 87 y.o. demented w m with left shoulder and left hip pain, Poor historian, avoids to move left shoulder and left hip Imaging: Left shoulder X Ray: NAD, official report is pending. Left hip CT: Nondisplaced left intertrochanteric fracture of femur Labs: WBC HCG/HGB nl Cr 1.4 Na 134 K 4.4 BUN 34 GFR 48 Procedure: Ruiz placement not placed due to severe Phimosis Impression: Nondisplaced left intertrochanteric Fx, S/P fall, Urinary retention , Phimosis. Left shoulder sprain. Agitation/Dementia Tx: morphin. NS, Ativan 6.30 pm Consultation: Dr. Burton, Ortho: will plan surgery at 10 am on 01/12/2018 6.55 pm Consultation: Dr. Seo: Will admit patient under his care, will do an HPI 01/11/2018 6.55 PM Consultation: Dr. León: Unable to place Ruiz cath now, will attempt it again when pt is sedated while getting the left hip surgery in am. 11.44 pm Consultation: Dr. León: Decr. NS to 30 cc per hour, will take care of it in am Plan: Admit to [facility], left hip fx repair in am Last Recorded V/S: Last Vital Signs Temp 36.6 C 01/12/18 08:01 Pulse 69 01/12/18 08:01 Resp 20 01/12/18 08:01 BP 157/99 H 01/12/18 08:01 Pulse Ox 94 L 01/12/18 08:01 - Orders/Labs/Meds Orders: Active Orders 24 hr Category Date Time Status Hip Min 1V w Pelvis Lt [CR] Stat Exams 01/11/18 15:10 Taken Pelvis wo Cont [CT] Stat Exams 01/11/18 16:18 Taken Shoulder 1V Lt [CR] Stat Exams 01/11/18 15:44 Taken UA W/MICROSCOPIC [URIN] Stat Lab 01/11/18 15:11 Ordered EKG 12 Lead [EK] Routine Ther 01/11/18 15:12 Ordered Medication Orders Sodium Chloride (Normal Saline) 1,000 mls @ 0 mls/hr IV ASDIRECTED INGE Morphine Sulfate (Morphine) 2 mg IVPUSH Q2H PRN PRN Reason: Pain (severe 7-10) Last Admin: 01/12/18 09:22 Dose: 2 mg Admin: 01/12/18 03:20 Dose: 2 mg Admin: 01/11/18 23:05 Dose: 2 mg Admin: 01/11/18 20:12 Dose: 2 mg Admin: 01/11/18 18:13 Dose: 2 mg Ondansetron HCl (Zofran) 4 mg IV Q4H PRN PRN Reason: Nausea/Vomiting Labs: Laboratory Tests 01/11/18 01/11/18 01/11/18 Range/Units 15:25 15:25 15:25 WBC 4.7 (4.5-12.0) X10-3/uL RBC 4.01 L (4.30-5.75) x10(6)uL Hgb 12.4 (11.5-15.5) g/dL Hct 36.8 (30.0-51.3) % MCV 91.7 (80-96) fL MCH 30.9 (27.7-33.6) pg MCHC 33.7 (32.2-35.4) g/dL RDW 12.7 (11.5-15.5) % Plt Count 183 (125-369) X10(3)uL MPV 7.9 (7.4-10.4) fL Neut % (Auto) 76.6 (46-82) % Lymph % (Auto) 11.3 L (13-37) % [place] % (Auto) 9.2 (4-12) % Eos % (Auto) 3 (1.0-5.0) % Baso % (Auto) 0 (0-2) % Neut # (Auto) 3.7 (1.6-8.3) # Lymph # (Auto) 0.5 L (0.6-5.0) # [place] # (Auto) 0.4 (0.0-1.3) # Eos # (Auto) 0.1 (0.0-0.8) # Baso # (Auto) 0.0 (0.0-0.2) # PT 11.0 (8.7-11.1) INR 1.09 (0.89-1.13) Sodium 138 (135-145) mmol/L Potassium 4.4 (3.5-5.3) mmol/L Chloride 101 (100-110) mmol/L Carbon Dioxide 28 (21-32) mmol/L BUN 34 H (7-18) mg/dL Creatinine 1.4 H (0.70-1.30) mg/dL Est Cr Clr Drug Dosing TNP Estimated GFR (MDRD) 48 L (>60) BUN/Creatinine Ratio 24.3 H (9-20) Glucose 96 (80-116) mg/dL Calcium 8.3 L (8.6-10.2) mg/dL Creatine Kinase 150 (60-160) IU/L Troponin I (<0.017-0.056) ng/mL 01/11/ Range/Units 15:25 WBC (4.5-12.0) X10-3/uL RBC (4.30-5.75) x10(6)uL Hgb (11.5-15.5) g/dL Hct (30.0-51.3) % MCV (80-96) fL MCH (27.7-33.6) pg MCHC (32.2-35.4) g/dL RDW (11.5-15.5) % Plt Count (125-369) X10(3)uL MPV (7.4-10.4) fL Neut % (Auto) (46-82) % Lymph % (Auto) (13-37) % [place] % (Auto) (4-12) % Eos % (Auto) (1.0-5.0) % Baso % (Auto) (0-2) % Neut # (Auto) (1.6-8.3) # Lymph # (Auto) (0.6-5.0) # [place] # (Auto) (0.0-1.3) # Eos # (Auto) (0.0-0.8) # Baso # (Auto) (0.0-0.2) # PT (8.7-11.1) INR (0.89-1.13) Sodium (135-145) mmol/L Potassium (3.5-5.3) mmol/L Chloride (100-110) mmol/L Carbon Dioxide (21-32) mmol/L BUN (7-18) mg/dL Creatinine (0.70-1.30) mg/dL Est Cr Clr Drug Dosing Estimated GFR (MDRD) (>60) BUN/Creatinine Ratio (9-20) Glucose (80-116) mg/dL Calcium (8.6-10.2) mg/dL Creatine Kinase (60-160) IU/L Troponin I < 0.017 L (<0.017-0.056) ng/mL Meds: Medications Generic Name Dose Route Start Last Admin Trade Name Freq PRN Reason Stop Dose Admin Sodium Chloride 1,000 mls @ 0 mls/hr 01/11/18 23:45 Normal Saline IV ASDIRECTED INGE KVO Morphine Sulfate 2 mg 01/11/18 17:11 01/12/18 09:22 Morphine IVPUSH 2 mg Q2H PRN Administration Pain (severe 7-10) Ondansetron HCl 4 mg 01/11/18 17:11 Zofran IV Q4H PRN Nausea/Vomiting Discontinued Medications Generic Name Dose Route Start Last Admin Trade Name Freq PRN Reason Stop Dose Admin Sodium Chloride 1,000 mls @ 125 mls/hr 01/11/18 17:15 01/11/18 23:45 Normal Saline IV 20 mls/hr ASDIRECTED INGE Infusion Lorazepam 0.5 mg 01/12/18 04:08 01/12/18 04:30 Ativan IVPUSH 01/12/18 04:09 0.5 mg ONETIME ONE Administration Departure - Departure Time of Disposition: 17:10 Disposition: Admitted As Inpatient 67 Condition: Fair Clinical Impression: Hip fracture, left Qualifiers: Encounter type: initial encounter Fracture type: closed Qualified Code(s): S72.002A - Fracture of unspecified part of neck of left femur, initial encounter for closed fracture - Discharge Information - My Orders Last 24 Hours: My Active Orders 01/11/18 15:10 Hip Min 1V w Pelvis Lt [CR] Stat 01/11/18 15:11 UA W/MICROSCOPIC [URIN] Stat 01/11/18 15:12 EKG 12 Lead [EK] Routine 01/11/18 15:44 Shoulder 1V Lt [CR] Stat 01/11/18 16:18 Pelvis wo Cont [CT] Stat - Assessment/Plan Last 24 Hours: My Active Orders 01/11/18 15:10 Hip Min 1V w Pelvis Lt [CR] Stat 01/11/18 15:11 UA W/MICROSCOPIC [URIN] Stat 01/11/18 15:12 EKG 12 Lead [EK] Routine 01/11/18 15:44 Shoulder 1V Lt [CR] Stat 01/11/18 16:18 Pelvis wo Cont [CT] Stat
[2018-01-11] MEDS ORDERED: Ondansetron 4 MG/2 ML SDV IV PRN (17:11)
[2018-01-11] MEDS ORDERED: Sodium Chloride 0.9% 1,000 ML IV SCH ×2 (17:15→23:45)
[2018-01-11] MEDS: Morphine 2 MG/ML Syringe IVPUSH PRN ×3 (18:13→23:05)
[2018-01-12] MEDS: Morphine 2 MG/ML Syringe IVPUSH PRN ×5 (03:20→21:41)
[2018-01-12] MEDS ORDERED: LORazepam 2 MG/ML SDV IVPUSH ONE (04:08)
--- NOTE | 2018-01-12 09:28 | PCM.CONS ---
H&P History of Present Illness - General Date of Service: 01/11/18 Admit Problem/Dx: Admission Diagnosis/Problem Admission Diagnosis/Problem Hip fracture due to osteoporosis Source of Information: Family, Provider History Limitations: Reports: Altered Mental Status - History of Present Illness Onset of Symptoms: Reports: Today, Sudden Duration of Symptoms: Reports: Hour(s): Location: Reports: Lower Extremity, Left Quality: Reports: Ache, Burning, Stabbing Severity: Moderate Improves with: Reports: Immobilization Worsens with: Reports: Movement Left Hip Pain Score (Numeric/FACES): 4 - Related Data Allergies/Adverse Reactions: Allergies Allergy/AdvReac Type Severity Reaction Status Date / Time lisinopril Allergy Cannot Verified 07/12/17 17:06 Remember Home Medications: Home Meds Acetaminophen [Acetaminophen Extra Strength] 1,000 mg PO 08,14,20 01/11/18 [ History] Albuterol [Proventil Neb Soln] 2.5 mg INH 08,20 01/11/18 [History] Albuterol [Proventil Neb Soln] 2.5 mg INH Q6H PRN 01/11/18 [History] DULoxetine HCl [Duloxetine HCl] 20 mg PO BEDTIME 01/11/18 [History] Divalproex Sodium [Depakote Sprinkle] 375 mg PO 08,14,20 01/11/18 [History] Gabapentin 1 ml PO Q2H PRN 01/11/18 [History] Gabapentin 4 ml PO 08,12,16,20 01/11/18 [History] Haloperidol [Haldol] 0.5 mg PO 12,20 01/11/18 [History] Hydrochlorothiazide 12.5 mg PO DAILY 01/11/18 [History] LORazepam 0.5 mg PO 12,17 01/11/18 [History] Mirtazapine 15 mg PO BEDTIME 01/11/18 [History] Past Medical History HEENT History: Reports: Hard of Hearing, Impaired Vision Cardiovascular History: Reports: Aneurysm, High Cholesterol, Hypertension, [place], Stents Genitourinary History: Reports: Urinary Incontinence Musculoskeletal History: Reports: Other (See Below) Other Musculoskeletal History: restless leg syndrome Neurological History: Reports: Alzheimers Disease, TIA Psychiatric History: Reports: Anxiety, Dementia - Infectious Disease History Infectious Disease History: Reports: Other (See Below) Other Infectious Disease History: unknown - Past Surgical History Cardiovascular Surgical History: Reports: AAA Repair, Coronary Artery Stent GI Surgical History: Reports: Appendectomy, Other (See Below) Other GI Surgeries/Procedures: hx past exploritory surgery long ago Musculoskeletal Surgical History: Reports: Other (See Below) Social & Family History - Family History Family Medical History: Unobtainable - Tobacco Use Smoking Status *Q: Former Smoker Used Tobacco, but Quit: Yes Month/Year Tobacco Last Used: unknown Second Hand Smoke Exposure: No - Caffeine Use Caffeine Use: Reports: None - Alcohol Use Days Per Week of Alcohol Use: 0 - Recreational Drug Use Recreational Drug Use: No H&P Review of Systems - Review of Systems: Review Of Systems: See Below General: Reports: No Symptoms HEENT: Reports: No Symptoms Pulmonary: Reports: No Symptoms Cardiovascular: Reports: No Symptoms Gastrointestinal: Reports: No Symptoms Genitourinary: Reports: No Symptoms Musculoskeletal: Reports: Shoulder Pain, Leg Pain, Joint Pain Skin: Reports: No Symptoms Psychiatric: Reports: Confusion Neurological: Reports: No Symptoms Hematologic/Lymphatic: Reports: No Symptoms Immunologic: Reports: No Symptoms Exam - Exam Exam: See Below - Vital Signs Vital Signs: Last Vital Signs Temp 97.8 F 01/12/18 08:01 Pulse 69 01/12/18 08:01 Resp 20 01/12/18 08:01 BP 157/99 H 01/12/18 08:01 Pulse Ox 94 L 01/12/18 08:01 Weight: 185 lb 9.6 oz - Exam General: Alert, Moderate Distress HEENT: PERRLA, Conjunctiva Clear, EOMI, Hearing Intact, Mucosa Moist & [place] Neck: Supple, Trachea Midline Lungs: Normal Respiratory Effort Extremities: Leg Pain, Limited Range of Motion Peripheral Pulses: 2+: Dorsalis Pedis (L), Dorsalis Pedis (R) Skin: Warm, Dry, Intact Neuro Extensive - Mental Status: Alert, Disorientation to Place, Disorientation to Time Psychiatric: Other Physical Exam Comments:: Physical examination of left lower extremity shows the skin to be warm, dry, and intact. Distal motor and sensory examinations grossly intact. There is no tenderness over the ankle, leg, or knee. He does have pain with range of motion of his hip so we did not examine full range of motion. There is no shortening of the left lower extremity compared to the contralateral extremity. - Patient Data Lab Results Last 24 hrs: Laboratory Results - last 24 hr 01/11/18 01/11/18 01/11/18 Range/Units 15:25 15:25 15:25 WBC 4.7 (4.5-12.0) X10-3/uL RBC 4.01 L (4.30-5.75) x10(6)uL Hgb 12.4 (11.5-15.5) g/dL Hct 36.8 (30.0-51.3) % MCV 91.7 (80-96) fL MCH 30.9 (27.7-33.6) pg MCHC 33.7 (32.2-35.4) g/dL RDW 12.7 (11.5-15.5) % Plt Count 183 (125-369) X10(3)uL MPV 7.9 (7.4-10.4) fL Neut % (Auto) 76.6 (46-82) % Lymph % (Auto) 11.3 L (13-37) % [place] % (Auto) 9.2 (4-12) % Eos % (Auto) 3 (1.0-5.0) % Baso % (Auto) 0 (0-2) % Neut # (Auto) 3.7 (1.6-8.3) # Lymph # (Auto) 0.5 L (0.6-5.0) # [place] # (Auto) 0.4 (0.0-1.3) # Eos # (Auto) 0.1 (0.0-0.8) # Baso # (Auto) 0.0 (0.0-0.2) # PT 11.0 (8.7-11.1) INR 1.09 (0.89-1.13) Sodium 138 (135-145) mmol/L Potassium 4.4 (3.5-5.3) mmol/L Chloride 101 (100-110) mmol/L Carbon Dioxide 28 (21-32) mmol/L BUN 34 H (7-18) mg/dL Creatinine 1.4 H (0.70-1.30) mg/dL Est Cr Clr Drug Dosing TNP Estimated GFR (MDRD) 48 L (>60) BUN/Creatinine Ratio 24.3 H (9-20) Glucose 96 (80-116) mg/dL Calcium 8.3 L (8.6-10.2) mg/dL Creatine Kinase 150 (60-160) IU/L Troponin I (<0.017-0.056) ng/mL 01/11/18 01/12/18 Range/Units 15:25 06:40 WBC 6.3 (4.5-12.0) X10-3/uL RBC 3.69 L (4.30-5.75) x10(6)uL Hgb 11.3 L (11.5-15.5) g/dL Hct 33.5 (30.0-51.3) % MCV 90.6 (80-96) fL MCH 30.5 (27.7-33.6) pg MCHC 33.6 (32.2-35.4) g/dL RDW 12.5 (11.5-15.5) % Plt Count 148 (125-369) X10(3)uL MPV 7.9 (7.4-10.4) fL Neut % (Auto) 78.0 (46-82) % Lymph % (Auto) 7.6 L (13-37) % [place] % (Auto) 13.2 H (4-12) % Eos % (Auto) 1 (1.0-5.0) % Baso % (Auto) 0 (0-2) % Neut # (Auto) 4.9 (1.6-8.3) # Lymph # (Auto) 0.5 L (0.6-5.0) # [place] # (Auto) 0.8 (0.0-1.3) # Eos # (Auto) 0.1 (0.0-0.8) # Baso # (Auto) 0.0 (0.0-0.2) # PT (8.7-11.1) INR (0.89-1.13) Sodium (135-145) mmol/L Potassium (3.5-5.3) mmol/L Chloride (100-110) mmol/L Carbon Dioxide (21-32) mmol/L BUN (7-18) mg/dL Creatinine (0.70-1.30) mg/dL Est Cr Clr Drug Dosing Estimated GFR (MDRD) (>60) BUN/Creatinine Ratio (9-20) Glucose (80-116) mg/dL Calcium (8.6-10.2) mg/dL Creatine Kinase (60-160) IU/L Troponin I < 0.017 L (<0.017-0.056) ng/mL Result Diagrams: 01/12/18 06:40 01/11/18 15:25 Consult PN Assessment/Plan POD#: 0 Procedures: Procedures ASSAY OF CK (CPK) (07/12/17) ASSAY OF NATRIURETIC PEPTIDE (07/12/17) ASSAY OF TROPONIN QUANT (07/12/17) CHEST X-RAY 1 VIEW FRONTAL (07/12/17) COMPLETE CBC W/AUTO DIFF WBC (07/12/17) COMPREHEN METABOLIC PANEL (02/22/17) CT HEAD/BRAIN W/O DYE (07/12/17) CT NECK SPINE W/O DYE (07/12/17) ELECTROCARDIOGRAM TRACING (07/12/17) EMERGENCY DEPT VISIT (07/15/17) EMERGENCY DEPT VISIT (07/12/17) EMERGENCY DEPT VISIT (02/22/17) EMERGENCY DEPT VISIT (07/16/16) HYDRATE IV INFUSION ADD-ON (07/12/17) HYDRATION IV INFUSION INIT (07/12/17) METABOLIC PANEL TOTAL CA (07/12/17) PROTHROMBIN TIME (07/12/17) ROUTINE VENIPUNCTURE (07/12/17) THER/PROPH/DIAG IV INF INIT (02/22/17) TX/PROPH/DG ADDL SEQ IV INF (02/22/17) URINALYSIS AUTO W/SCOPE (07/12/17) (1) Fracture, intertrochanteric, left femur SNOMED Code(s): 940876862 Code(s): S72.142A - DISPLACED INTERTROCHANTERIC FRACTURE OF LEFT FEMUR, INIT Current Visit: Yes Qualifiers: Encounter type: initial encounter Fracture type: closed Fracture alignment: nondisplaced Qualified Code(s): S72.145A - Nondisplaced intertrochanteric fracture of left femur, initial encounter for closed fracture Problem List Initiated/Reviewed/Updated: Yes Plan: Imaging: Plain films of the AP pelvis do show suspicion for minimally displaced intertrochanteric fracture of the left hip. CT confirms this finding. Plan: Dr. Seo will be coming in to perform history and physical. The patient is well-known to him. We'll plan on performing a left hip souffle medullary nailing tomorrow at 10 AM. I've discussed the risks and benefits of the procedure to both the patient's son and daughter. His daughter signed the consent as she has power of state attorney. Risks and benefits of the procedure explained to the patient family. Requesting Provider: ER Patient History Reviewed: Yes Admission H&P Reviewed: No Notified Requestor: Yes
[2018-01-12] MEDS ORDERED: Lactated Ringers 1,000 ML IV ONE (09:45)
[2018-01-12] MEDS ORDERED: Rocuronium 100 MG/10 ML MDV IV ONE (09:45)
[2018-01-12] MEDS ORDERED: ceFAZolin 1 GM Vial IV ONE (09:45)
[2018-01-12] MEDS ORDERED: Propofol 200 MG/20 ML SDV IV ONE (09:45)
[2018-01-12] MEDS ORDERED: ePHEDrine 50 MG/ML SDV IV ONE (09:45)
[2018-01-12] MEDS ORDERED: Midazolam 1 MG/ML 2 ML SDV IV ONE (09:45)
[2018-01-12] MEDS ORDERED: fentaNYL 100 MCG/2 ML SDV IV ONE (09:45)
[2018-01-12] MEDS ORDERED: Phenylephrine 1% 10 MG/ML SDV IV ONE (09:45)
[2018-01-12] MEDS ORDERED: Ondansetron 4 MG/2 ML SDV IVPUSH ONE (09:45)
[2018-01-12] MEDS ORDERED: Esmolol 100 MG/10 ML SDV IV ONE (09:45)
[2018-01-12] MEDS ORDERED: Glycopyrrolate 0.2 MG/ML 2 ML SDV IV ONE (09:45)
[2018-01-12] MEDS ORDERED: ceFAZolin 2 GM in Premix Bag 1 BAG IV SCH (17:00)
[2018-01-12] MEDS: ceFAZolin 1 GM Vial IVPUSH SCH (18:15)
[2018-01-12] MEDS ORDERED: Albuterol 0.083% 2.5 MG/3 ML Neb Soln INH PRN (20:20)
[2018-01-12] MEDS ORDERED: Gabapentin 250 MG/5 ML Solution ML 470 ML Bottle PO PRN (20:20)
[2018-01-12] MEDS: Mirtazapine 15 MG Tab PO SCH (21:39)
[2018-01-12] MEDS: DULoxetine 20 MG Cap PO SCH (21:48)
[2018-01-13] MEDS: Morphine 2 MG/ML Syringe IVPUSH PRN ×5 (00:30→17:07)
[2018-01-13] MEDS: Sodium Chloride 0.9% 10 ML Syringe FLUSH PRN ×6 (00:32→13:22)
[2018-01-13] MEDS ORDERED: ceFAZolin 1 GM Vial ONE ×2 (02:12→18:25)
[2018-01-13] MEDS: ceFAZolin 1 GM Vial IVPUSH SCH ×3 (02:13→18:30)
--- NOTE | 2018-01-13 06:41 | OR ---
DATE OF OPERATION: 01/12/2018 SURGEON: Darryn Burton DO PREOPERATIVE DIAGNOSIS: Left hip intertrochanteric fracture, closed. POSTOPERATIVE DIAGNOSIS: Left hip intertrochanteric fracture, closed. PROCEDURE PERFORMED: Left hip cephalomedullary nailing. ANESTHESIA: General endotracheal and intubation. FLUIDS: Lactated Ringer's solution. ESTIMATED BLOOD LOSS: 150 mL. COMPLICATIONS: None. SPECIMENS: None. DISCHARGE DISPOSITION: Stable to PACU. INSTRUMENTATION: 13 mm x 360 mm gamma nail from [employer] with 110 mm x 10.5 mm proximal screw and 55 mm distal screw. HISTORY AND INDICATIONS FOR THE PROCEDURE: The patient fell yesterday. He was admitted to the Hospitalist Service through the ER. He was found to have a left hip intertrochanteric fracture which was closed and nondisplaced. I discussed risks and benefits of the procedure with his son and daughter, whose daughter is the power of tax associate attorney. Informed consent was obtained. DETAILS OF PROCEDURE: The patient was seen preoperatively by myself and the Anesthesia staff in the preoperative holding area where the operative site was marked. He was brought to the suite by the anesthesia staff where they did try spinal sedation but this was unable to be obtained. General endotracheal intubation was performed. The patient was placed on the trauma table, the right lower extremity was placed up in a hip john with left lower extremity placed in traction. All extremities were found to be well padded. The left lower extremity was then prepped and draped in a sterile manner and a time-out was called to identify the correct patient, the correct procedure, the correct site, and antibiotics had been given with an appropriate period of time. AP fluoroscopy was used to visualize just proximal to the greater trochanter. I entered just in the posterior portion of the greater trochanter and placed my awl after making the incision and then placed a guidewire down, just proximal to the knee. This measured 360 mm. I then reamed a 16-mm opening reamer. Then I did sequential reaming up to 14.5 mm under fluoroscopic visualization, we did get chatter. I then placed by nail, and then focussed on my femoral head screw. I used the alignment guide, made an incision, and then adjusted using fluoroscopy for my position. I confirmed the good position of the guidewire on both AP and lateral fluoroscopy with tip to apex distance less than 25 mm. I then reamed for my screw after measuring and then placed my 110 mm screw. I then removed the outrigger and then took AP and lateral proximal films showing good tip to apex distance and good position of the nail. I then used the perfect [place] technique to place my 55 mm distal locking screw. We then took final AP and lateral views of that and then copiously irrigated with saline. I closed the 2 proximal incisions with #1 STRATAFIX and chance and then the distal locking screw incision with chance. We then applied Aquacel proximally and then a sterile 4x4 and tape distally. We then removed the patient from traction and then transferred him to his hospital bed in supine position and then he was transferred to PACU in good condition. /[id number] 1930 DANTE/BREANNA
[2018-01-13] MEDS ORDERED: Gabapentin 250 MG/5 ML Solution ML 470 ML Bottle PO SCH (08:00)
[2018-01-13] MEDS: Albuterol 0.083% 2.5 MG/3 ML Neb Soln INH SCH ×2 (09:36→20:14)
[2018-01-13] MEDS: Hydrochlorothiazide 12.5 MG Cap PO SCH (10:22)
[2018-01-13] MEDS: Divalproex Sodium Delayed-Release 125 MG Cap.Sprink PO SCH ×3 (10:29→20:15)
[2018-01-13] MEDS: Enoxaparin 30 MG/0.3 ML Syringe SUBCUT SCH (11:12)
[2018-01-13] MEDS: Haloperidol 0.5 MG Tab PO SCH ×2 (11:13→20:21)
[2018-01-13] MEDS ORDERED: Gabapentin 100 MG Cap PO SCH ×2 (12:00→16:00)
--- NOTE | 2018-01-13 12:32 | PN ---
DATE SEEN: 01/13/2018 SUBJECTIVE: Aj Ty is an 87-year-old male, 1 day postop left intertrochanteric hip fracture. Doing well. Dr. Jazmine Burton provided record. Agitation, irritability and post surgical conflicts are present. Repeat hemoglobin plan for today. Operative report was reviewed. OBJECTIVE: VITAL SIGNS: Stable. 36.8, 102/60, 74 is the mean. Heart rate 82, O2 saturation 95%. GENERAL: Uncooperative with exam. No intelligible speech. CHEST: Clear in all lung [place]. HEART: Regular rate without murmur. ABDOMEN: Benign. ASSESSMENT: Postoperative care day 1. PLAN: Hemoglobin recheck. Close observation. Lovenox started. Given history of anticoagulant therapy in the past. /[id number] LAMBERT/BREANNA
[2018-01-13] MEDS: Gabapentin 100 MG Cap PO SCH ×2 (15:59→20:14)
[2018-01-13] MEDS: Acetaminophen/oxyCODONE 325-5 MG Tab PO PRN (17:33)
[2018-01-13] MEDS: LORazepam 0.5 MG Tab PO SCH (19:30)
[2018-01-13] MEDS: Mirtazapine 15 MG Tab PO SCH (20:15)
[2018-01-13] MEDS: DULoxetine 20 MG Cap PO SCH (20:36)
[2018-01-14] MEDS: ceFAZolin 1 GM Vial IVPUSH SCH (02:02)
[2018-01-14] MEDS: Sodium Chloride 0.9% 10 ML Syringe FLUSH PRN ×3 (03:07→06:15)
[2018-01-14] MEDS: Morphine 2 MG/ML Syringe IVPUSH PRN ×2 (03:17→06:15)
[2018-01-14] MEDS: Albuterol 0.083% 2.5 MG/3 ML Neb Soln INH SCH ×2 (07:25→20:47)
[2018-01-14] MEDS ORDERED: Gabapentin 250 MG/5 ML Solution ML 470 ML Bottle PO PRN (08:23)
--- NOTE | 2018-01-14 08:54 | PREOP ---
ADMISSION DATE: 01/11/2018 HISTORY OF PRESENT ILLNESS: Aj Ty is an 87-year-old male, admitted through [facility] with a complicated fall which occurred at a local snf. Significant pain was present in the left hip, some suspicion for left shoulder pain. When seen in the emergency room, he was found to have a significantly displaced intertrochanteric hip fracture. Dr. Burton in Orthopedics was consulted. Surgical management was appropriate. He was admitted for observation and stabilization prior to upcoming surgery on the morning of 01/12/2017. MEDICATIONS: Present daily medications include, 1. Klonopin 0.5 mg one p.o. b.i.d. agitation. 2. Vistaril 25 mg one p.o. t.i.d. agitation. 3. Neurontin 100 mg one p.o. b.i.d. chronic pain issue. 4. Xarelto 15 mg one p.o. daily, DVT. 5. Remeron 7.5 mg one p.o. at bedtime, sleep enhancement, mood stabilization. 6. DuoNeb q.i.d. p.r.n. breathing. 7. Seroquel 25 mg one p.o. b.i.d. 8. P.r.n. Tylenol. 9. P.r.n. Imodium. 10.Sinemet 25/100 2 p.o. at bedtime, restless leg. 11.Hydrochlorothiazide 12.5 mg a day, blood pressure. ALLERGIES: Allergic to lisinopril, hives. No other medication, environmental, or latex allergies. PAST MEDICAL HISTORY: Significant for coronary artery bypass surgery, abdominal aortic repair 2011. 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 SOCIAL HISTORY: Resident of a local [facility]. Care givers - family members in place throughout. Remote smoker, nil alcohol consumption. No illicit drug use. REVIEW OF SYSTEMS: Difficult to ascertain given circumstances. However, reports things have been stable. He had a recent visit to [facility] for agitated dementia. Eats fairly well, bowels have been fine, does have some accidents. Generalized joint complaints. PHYSICAL EXAMINATION: VITAL SIGNS: Stable. Temperature 36.1, pulse 78, blood pressure 146/75, respirations 18, O2 saturations 93% on room air. GENERAL: Elderly gentleman, supine in his room. Family in attendance. HEENT: Reveal normal conjunctiva, bright tympanic membranes. Clear nasal discharge. Mouth and oropharynx clear. No loose dentition. NECK: Benign. Thyroid small. CHEST: Clear in all lung villanueva. No adventitious sounds. HEART: Regular without ectopy or murmur. BREASTS: Normal male breasts. LYMPHATICS: Neck, axilla, and groin, no adenopathy. ABDOMEN: Benign. Surgical scars are well healed. Sternotomy scar well healed, anterior chest. : Normal male genitalia. Atrophic testicles. EXTREMITIES: Well perfused, venous stasis changes, and moderate varicosities. There was some shortening and some external rotation of the left hip. LABORATORY STUDIES: White count 4700, hemoglobin 12.4, platelets 183,000. Electrolytes satisfactory. GFR 48. ASSESSMENT: An 87-year-old gentleman presents with fall, left intertrochanteric hip fracture, surgical management appropriate. PLAN: Risks and benefits have been discussed and will be reviewed by Dr. Burton on the day of the operation. The patient to be kept n.p.o., pain will be controlled, complementary care and well-being. /[id number] LAMBERT/BREANNA
[2018-01-14] MEDS: Gabapentin 100 MG Cap PO SCH ×4 (09:02→20:47)
[2018-01-14] MEDS: Divalproex Sodium Delayed-Release 125 MG Cap.Sprink PO SCH ×3 (09:02→20:46)
[2018-01-14] MEDS: Hydrochlorothiazide 12.5 MG Cap PO SCH (09:03)
[2018-01-14] MEDS: Enoxaparin 30 MG/0.3 ML Syringe SUBCUT SCH (10:46)
[2018-01-14] MEDS ORDERED: LORazepam 0.5 MG Tab PO SCH (12:00)
[2018-01-14] MEDS: LORazepam 0.5 MG Tab PO SCH ×2 (12:13→17:28)
[2018-01-14] MEDS: Haloperidol 0.5 MG Tab PO SCH ×2 (12:14→20:46)
--- NOTE | 2018-01-14 12:26 | CR ---
INDICATION: Fell, question fracture. PELVIS WITH LEFT HIP: Frontal view of the pelvis with lateral of the left hip revealed an irregular transverse intertrochanteric fracture extending into the neck of the left femur slightly. There is minimal offset and mild angulation at the fracture site. Slight separation of the fracture fragments laterally is noted. Mild to moderate degenerative changes are noted at the hip joints with cranial lateral joint space narrowing of mild degree. Bone density may be slightly diminished, raising question of osteomalacia or osteoporosis - correlate clinically. Arterial calcifications are noted, including at the common femoral artery on the left, which appears dilated to approximately 29 mm. 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 Degenerative changes are noted at L4-5 with disk disease suggested at that level. IMPRESSION: 1. Proximal left femoral fx. with mild deformity. 2. Left common femoral artery aneurysm. 3. Possible demineralization. MTDD
--- NOTE | 2018-01-14 12:26 | PN ---
DATE SEEN: 01/14/2018 SUBJECTIVE: Aj Ty is an 87-year-old male, had been living at [place]. Two days postop intertrochanteric fracture with surgical repair. Dr. Burton provider of record. Postoperative hemoglobin, 01/13/2018, 9.8 and hematocrit 28.9, normal indices. Urinalysis unremarkable. Moderate leukocytes. Culture to follow. OBJECTIVE: VITAL SIGNS: 37.4, 82, 104/55, 18, and O2 saturation 94%. GENERAL: Difficult exam, but no obvious distress. CHEST: Clear in all lung villanueva. HEART: Regular without ectopy or significant murmur. ABDOMEN: Benign. MUSCULOSKELETAL: Surgical wound, left hip, incision satisfactory. ASSESSMENT: Postoperative day #2, left intertrochanteric fracture repair. PLAN: Continue present medications. Advance diet as tolerated. Discontinue IV fluids and management accordingly. Likely discharge to a long-term care facility other than [place]. /[id number] LAMBERT/BREANNA
--- NOTE | 2018-01-14 12:29 | CR ---
INDICATION: Hip nailing. C-ARM LESS THAN 1 HOUR: 0.4 minutes C-arm fluoroscopy time was utilized in O.R. during hip pinning. Five images were obtained with C-arm spots and showed essentially anatomic position and alignment of the proximal femoral fracture fragments fixed in place by intramedullary analisa and compression screw. Intramedullary analisa is fixed in place by a single screw at the distal femoral metaphysis. A definite complicating process was not identified. FRANCO
--- NOTE | 2018-01-14 12:31 | CR ---
INDICATION: Pre-op chest. CHEST: Portable AP upright view of the chest was obtained 01/11/2018 and compared with 07/12/2017, revealing the heart to be near the upper limits of normal size. The aorta is tortuous with calcification in the arch. The lungs appear to be somewhat hyperaerated with flattened diaphragm leaves, suggesting COPD. A definite active infiltrate or effusion or contusion was not identified. IMPRESSION: 1. No definite acute process. 2. ASHD with mild cardiomegaly or heart at the upper limits of normal in size. 3. Probable COPD. MTDD
--- NOTE | 2018-01-14 12:34 | CR ---
INDICATION: Trauma, fell. LEFT SHOULDER: A single portable view of the left shoulder revealed no gross acute abnormality. However, without a lateral view, it is difficult to exclude dislocation. Degenerative changes are noted at the glenohumeral and AC joints. IMPRESSION: As visualized on a single portable AP view with limited detail - no acute fracture and no inferior deviation or superior deviation of the humeral head is seen. MTDD
[2018-01-14] MEDS: Mirtazapine 15 MG Tab PO SCH (20:47)
[2018-01-14] MEDS: DULoxetine 20 MG Cap PO SCH (20:47)
[2018-01-15] MEDS: Acetaminophen/oxyCODONE 325-5 MG Tab PO PRN ×2 (00:11→05:35)
[2018-01-15] MEDS: Albuterol 0.083% 2.5 MG/3 ML Neb Soln INH SCH (07:20)
[2018-01-15] MEDS ORDERED: Furosemide 40 MG/4 ML VIAL IM STA (08:29)
[2018-01-15] MEDS ORDERED: Scopolamine 1.5 MG Transdermal Patch TOP ONE (08:30)
[2018-01-15] MEDS: Divalproex Sodium Delayed-Release 125 MG Cap.Sprink PO SCH ×2 (10:34→13:01)
[2018-01-15] MEDS: Gabapentin 100 MG Cap PO SCH ×3 (10:34→16:57)
[2018-01-15] MEDS: Hydrochlorothiazide 12.5 MG Cap PO SCH (10:34)
[2018-01-15] MEDS: Morphine 2 MG/ML Syringe SUBCUT PRN ×5 (10:58→20:21)
[2018-01-15] MEDS: Enoxaparin 30 MG/0.3 ML Syringe SUBCUT SCH (10:59)
[2018-01-15] MEDS: LORazepam 0.5 MG Tab PO SCH ×2 (13:00→19:06)
[2018-01-15] MEDS: Haloperidol 0.5 MG Tab PO SCH (13:01)
--- NOTE | 2018-01-15 13:45 | PN ---
DATE SEEN: 01/15/2018 Mr. Ty is an 87-year-old male, seen today for routine followup. senior electrical engineer hours, marked change in level of well-being. Irritable, distractible, conflictual, dementia-related symptoms throughout his postoperative hospital stay. Midmorning, became more obtunded, unresponsive, no spontaneous verbalization, response to pain only. Vital signs are otherwise stable. I spoke at length with the family members, in attendance. Given circumstances, some event either cerebrovascular accident, cardiovascular accident, or embolus has appeared. Given gravity of his underlying dementia, living situation, conflicts and issues, and quality of life - agreed to proceed with comfort measures only. Spoke to IV fluids - family declined. We will add scopolamine patch, MS Contin for pain, and a single dose of intramuscular Lasix. Family in agreement. Comfort measures in the meantime. /[id number] LAMBERT/BREANNA
[2018-01-15] MEDS: LORazepam 2 MG/ML SDV SUBCUT PRN (19:44)
[2018-01-15] MEDS ORDERED: Haloperidol Lactate 5 MG/ML SDV IM PRN (20:42)
[2018-01-16] MEDS: Morphine 2 MG/ML Syringe SUBCUT PRN ×3 (00:57→09:08)
[2018-01-16] MEDS: LORazepam 2 MG/ML SDV SUBCUT PRN ×2 (00:58→08:59)
[2018-01-16] MEDS: Morphine 10 MG/0.5 ML Oral Syringe SL PRN ×6 (11:03→22:10)
--- NOTE | 2018-01-16 13:11 | PN ---
DATE SEEN: 01/16/2018 SUBJECTIVE: Aj Ty is an 87-year-old male, presently in dying process. Discussed with family host of opportunities including diagnostic studies, CAT scan, x-ray looking for sepsis, issues and implications. Given the gravity of his underlying dementia and quality of life, comfort measures in place. Palliative care. Hospice is involved. He had a bit of an agitated restless night, but breathing much more comfortably today. He does respond to pain. He opens eyes on occasion, but nothing with any obvious improvement. OBJECTIVE: VITAL SIGNS: 36.7, pulse is 61, 117/79, and 88%. GENERAL: A bit of response to pain. CHEST: Remarkably clear today. HEART: Sounds are distant. ABDOMEN: Benign. MUSCULOSKELETAL: Moves extremities. Surgical wound, left side intact. ASSESSMENT: Left hip fracture with surgical repair, interval change in well being. PLAN: Comfort measures, palliative care, hospice involved, complementary care and well being. /[id number] LAMBERT/BREANNA
[2018-01-17] MEDS: Morphine 10 MG/0.5 ML Oral Syringe SL PRN ×12 (01:24→22:15)
[2018-01-17] MEDS: LORazepam 2 MG/ML SDV SUBCUT PRN ×2 (10:58→17:51)
--- NOTE | 2018-01-17 13:41 | PN ---
DATE SEEN: 01/17/2018 Aj Ty is a young man, 87 years of age, seen today for review. Complicated medical history of severe end-stage dementia. Had a recent left hip fracture, underwent repair on 01/12/2018, without incident. Postoperative laboratory studies were complementary. Hemoglobin 12.4, 11.3, and 9.8. Had a profound change in event 2 days ago, increasing lethargy, lack of responsiveness, certainly some telling event either cardiovascular or cerebrovascular hall. Lengthy discussion with family in terms of input, care, and treatment. Timing appropriate. Hospice had a consultation. Continues to be increasingly obtunded, vital signs remarkably stable, not taking any by mouth, voiding has been absent, response to pain decreasingly present. We will continue with comfort measures. Present treatment in place. /[id number] LAMBERT/BREANNA
[2018-01-18 03:15] VITALS: BP 110/58
[2018-01-18] MEDS: Morphine 10 MG/0.5 ML Oral Syringe SL PRN ×5 (08:15→23:40)
[2018-01-18] MEDS ORDERED: Scopolamine 1.5 MG Transdermal Patch TOP ONE (10:00)
--- NOTE | 2018-01-18 19:48 | PCM.PN ---
- General Info Date of Service: 01/18/18 Subjective Update: Mr. maciel remains obtunded. Shallow breathing prolonged apneic spells minimal response to pain. Son at the bedside. Comfortable piece currently under comfort cares. - Review of Systems Systems Review Comment:: Unobtainable - Patient Data Vitals - Most Recent: Last Vital Signs Temp 100.8 F H 01/18/18 08:00 Pulse 100 01/18/18 00:00 Resp 20 01/18/18 00:00 BP 110/58 L 01/18/18 00:00 Pulse Ox 90 L 01/18/18 00:00 Weight - Most Recent: 84.187 kg Med Orders - Current: Current Medications Haloperidol Lactate (Haldol) 2 mg IM Q1H PRN PRN Reason: agitation - max of 3 doses Last Admin: 01/15/18 20:55 Dose: 2 mg Lorazepam (Ativan) 1 mg SUBCUT Q2H PRN PRN Reason: Agitation/Muscle Twitching Last Admin: 01/17/18 17:51 Dose: 1 mg Morphine Sulfate (Morphine) 1 mg SUBCUT Q2H PRN PRN Reason: respiratory distress Last Admin: 01/16/18 09:08 Dose: 1 mg Morphine Sulfate (Morphine 10 Mg/0.5 Ml Oral Syringe) 5 mg SL Q30M PRN PRN Reason: Pain Last Admin: 01/18/18 17:09 Dose: 5 mg Scopolamine (Transderm-Scop) 1.5 mg TOP Q72H [facility] Sodium Chloride (Saline Flush) 10 ml FLUSH ASDIRECTED PRN PRN Reason: Keep Vein Open Last Admin: 01/14/18 06:15 Dose: 10 ml Discontinued Medications Albuterol (Proventil Neb Soln) 2.5 mg INH BID@0800,2000 [facility] Last Admin: 01/15/18 07:20 Dose: 2.5 mg Albuterol (Proventil Neb Soln) 2.5 mg INH Q6H PRN PRN Reason: Dyspnea Cefazolin Sodium (Ancef) 2 gm IVPUSH Q8H [facility] Last Admin: 01/14/18 02:02 Dose: 2 gm Cefazolin Sodium (Ancef) Confirm Administered Dose 1 gm .ROUTE .STK-MED ONE Stop: 01/13/18 02:13 Last Admin: 01/13/18 02:47 Dose: Not Given Cefazolin Sodium (Ancef) Confirm Administered Dose 1 gm .ROUTE .STK-MED ONE Stop: 01/13/18 18:26 Last Admin: 01/13/18 18:51 Dose: Not Given Cefazolin Sodium (Ancef) 2 gm IV .STK-MED ONE Stop: 01/12/18 09:46 Divalproex Sodium (Depakote Sprinkle) 375 mg PO TID@0800,1400,2000 [facility] Last Admin: 01/15/18 13:01 Dose: Not Given Duloxetine HCl (Cymbalta) 20 mg PO BEDTIME [facility] Last Admin: 01/14/18 20:47 Dose: 20 mg Enoxaparin Sodium (Lovenox) 30 mg SUBCUT Q24H [facility] Last Admin: 01/15/18 10:59 Dose: 30 mg Ephedrine Sulfate (Ephedrine Sulfate) 30 mg IV .STK-MED ONE Stop: 01/12/18 09:46 Esmolol HCl (Esmolol) 20 mg IV .K-MED ONE Stop: 01/12/18 09:46 Fentanyl (Sublimaze) 200 mcg IV .STK-MED ONE Stop: 01/12/18 09:46 Furosemide (Lasix) 40 mg IM NOW STA Stop: 01/15/18 08:30 Last Admin: 01/15/18 08:44 Dose: 40 mg Gabapentin (Neurontin) 50 mg PO Q2H PRN PRN Reason: Pain, Anxiety, Restlessness Gabapentin (Neurontin) 200 mg PO 0800,1200,1600,2000 [facility] Last Admin: 01/13/18 11:04 Dose: Not Given Gabapentin (Neurontin) 200 mg PO BID@0800,1200 [facility] Last Admin: 01/13/18 11:11 Dose: 200 mg Gabapentin (Neurontin) 200 mg PO BID@1600,2000 [facility] Gabapentin (Neurontin) 200 mg PO QID@08,12,16,20 [facility] Last Admin: 01/15/18 16:57 Dose: Not Given Gabapentin (Neurontin) 50 mg PO Q2H PRN PRN Reason: Pain, Anxiety, Restlessness Glycopyrrolate (Glycopyrrolate) 0.4 mg IV .STK-MED ONE Stop: 01/12/18 09:46 Haloperidol (Haldol) 0.5 mg PO BID@1200,2000 [facility] Last Admin: 01/15/18 13:01 Dose: Not Given Haloperidol (Haldol) 2 mg PO ONETIME ONE Stop: 01/12/18 21:01 Last Admin: 01/12/18 21:39 Dose: 2 mg Hydrochlorothiazide (Hydrochlorothiazide) 12.5 mg PO DAILY [facility] Last Admin: 01/15/18 10:34 Dose: Not Given Sodium Chloride (Normal Saline) 1,000 mls @ 125 mls/hr IV ASDIRECTED [facility] Last Infusion: 01/11/18 23:45 Dose: 20 mls/hr Sodium Chloride (Normal Saline) 1,000 mls @ 0 mls/hr IV ASDIRECTED [facility] Cefazolin Sodium/Dextrose 2 gm (/ Premix) 50 mls @ 100 mls/hr IV Q8H INGE Stop: 01/13/18 01:29 Last Admin: 01/12/18 17:00 Dose: Not Given Lactated Ringer's (Ringers, Lactated) 1,000 mls @ as directed IV .STK-MED ONE Stop: 01/12/18 09:46 Lorazepam (Ativan) 0.5 mg IVPUSH ONETIME ONE Stop: 01/12/18 04:09 Last Admin: 01/12/18 04:30 Dose: 0.5 mg Lorazepam (Ativan) 0.5 mg PO BID@1200,1700 [facility] Lorazepam (Ativan) 0.5 mg PO BID@1200,1700 [facility] Last Admin: 01/15/18 19:06 Dose: Not Given Midazolam HCl (Versed 1 Mg/Ml) 4 mg IV .STK-MED ONE Stop: 01/12/18 09:46 Mirtazapine (Remeron) 15 mg PO BEDTIME [facility] Last Admin: 01/14/18 20:47 Dose: 15 mg Morphine Sulfate (Morphine) 2 mg IVPUSH Q2H PRN PRN Reason: Pain (severe 7-10) Last Admin: 01/14/18 06:15 Dose: 2 mg Ondansetron HCl (Zofran) 4 mg IV Q4H PRN PRN Reason: Nausea/Vomiting Ondansetron HCl (Zofran) 4 mg IVPUSH .STK-MED ONE Stop: 01/12/18 09:46 Oxycodone/Acetaminophen (Percocet 325-5 Mg) 1 tab PO Q6H PRN PRN Reason: Pain Last Admin: 01/15/18 05:35 Dose: 1 tab Phenylephrine HCl (Wade-Synephrine) 0.6 mg IV .STK-MED ONE Stop: 01/12/18 09:46 Propofol (Diprivan 20 Ml) 200 mg IV .STK-MED ONE Stop: 01/12/18 09:46 Rocuronium Neotsu (Zemuron) 30 mg IV .STK-MED ONE Stop: 01/12/18 09:46 Scopolamine (Transderm-Scop) 1.5 mg TOP ONETIME ONE Stop: 01/15/18 08:31 Last Admin: 01/15/18 08:47 Dose: 1.5 mg Scopolamine (Transderm-Scop) 1.5 mg TOP Q72H ONE Stop: 01/18/18 10:01 Last Admin: 01/18/18 10:24 Dose: 1.5 mg - Exam General: Obtunded HEENT: Pupils Reactive, Scleral Icterus. No: Mucous Membr. Moist/[place] Lungs: Decreased Breath Sounds Cardiovascular: Regular Rate, Irregular Rhythm GI/Abdominal Exam: Abnormal Bowel Sounds. No: Rigid Extremities: Pedal Edema, Slow Capillary Refill, Mottled Skin: Cool - Problem List & Annotations (1) End of life care SNOMED Code(s): 887410839, 932772748 Code(s): Z51.5 - ENCOUNTER FOR PALLIATIVE CARE Status: Acute (2) Hip fracture, left SNOMED Code(s): 821625149 Code(s): S72.002A - FRACTURE OF UNSP PART OF NECK OF LEFT FEMUR, INIT Status: Acute Qualifiers: Encounter type: initial encounter Fracture type: closed Qualified Code(s) : S72.002A - Fracture of unspecified part of neck of left femur, initial encounter for closed fracture - Problem List Review Problem List Initiated/Reviewed/Updated: Yes - My Orders Last 24 Hours: My Active Orders 01/21/18 10:00 Scopolamine [Transderm-Scop] 1.5 mg TOP Q72H - Plan Plan:: Continue comfort cares.
[2018-01-19] MEDS: Morphine 10 MG/0.5 ML Oral Syringe SL PRN ×3 (11:52→13:29)
--- NOTE | 2018-01-19 13:59 | PCM.SN ---
- Free Text/Narrative Note: Mr. Ty at 1:36 PM. I assessed him for signs of any cardiopulmonary activity via auscultation and palpation for central and peripheral pulses. There were none. He was surrounded by his family and is at peace.
[2018-01-21] MEDS ORDERED: Scopolamine 1.5 MG Transdermal Patch TOP SCH (10:00)
--- NOTE | 2018-01-23 14:25 | PCM.DCSUM1 ---
Discharge Summary - Hospital Course Brief History: Patient presented on day of admission 01/11/2018 after having a fall at the care home. He sustained a closed displaced left hip fracture. - Discharge Data Discharge Date: 01/19/18 Discharge Disposition: 20 Preliminary Cause of *Q: Cardiac Arrest Condition: Undetermined - Discharge Diagnosis/Problem(s) (1) Cardiac arrest SNOMED Code(s): 266863694 ICD Code: I46.9 - CARDIAC ARREST, CAUSE UNSPECIFIED Status: Acute (2) End of life care SNOMED Code(s): 910303240, 388477858 ICD Code: Z51.5 - ENCOUNTER FOR PALLIATIVE CARE Status: Acute (3) Hip fracture, left SNOMED Code(s): 440683272 ICD Code: S72.002A - FRACTURE OF UNSP PART OF NECK OF LEFT FEMUR, INIT Status: Acute Qualifiers: Encounter type: initial encounter Fracture type: closed Qualified Code(s) : S72.002A - Fracture of unspecified part of neck of left femur, initial encounter for closed fracture - Patient Summary/Data Operative Procedure(s) Performed: 01/12/2018 underwent left hip pinning for closed left hip fracture secondary to fall Consults: Consultations 01/12/18 12:00 PT Evaluation and Treatment [CONS] Routine Please Evaluate and Treat. PT Reason for Consult: post op left hip nail This query below is only for informational purposes and is not editable. Admission Diagnosis/Problem: Hip fracture due to osteoporosis 01/12/18 12:01 OT Evaluation and Treatment [CONS] Routine Please Evaluate and Treat. OT Reason for Consult: post op left hip nail This query below is only for informational purposes and is not editable. Admission Diagnosis/Problem: Hip fracture due to osteoporosis 01/15/18 10:58 Consult to Palliative Care [CONS] Routine Comment: Physician Instructions: Hospital Course: Patient was admitted in stabilized on 01/11/2018. On 13/11/2017 he underwent pinning of left hip. There were no complications with the procedure. A few days later he suddenly had significant decline in mental status and strength distant with cerebrovascular accident and or myocardial infarction. Due to the patient' s comorbidities with severe dementia prior to operative care he was a known high risk however with his high level of pain required intervention. At the time of insult family opted to withdraw medical interventions or imaging to evaluate for the exact cause in change of status in accordance with what the patient's wishes would've been. Therefore he was placed on comfort cares to allow natural with his family at the bedside. - Discharge Plan Home Medications: Home Meds Acetaminophen [Acetaminophen Extra Strength] 1,000 mg PO 08,14,20 01/11/18 [ History] Albuterol [Proventil Neb Soln] 2.5 mg INH 08,20 01/11/18 [History] Albuterol [Proventil Neb Soln] 2.5 mg INH Q6H PRN 01/11/18 [History] DULoxetine HCl [Duloxetine HCl] 20 mg PO BEDTIME 01/11/18 [History] Divalproex Sodium [Depakote Sprinkle] 375 mg PO 08,14,20 01/11/18 [History] Gabapentin 50 mg PO Q2H PRN 01/11/18 [History] Gabapentin 200 mg PO 08,12,16,20 01/11/18 [History] Haloperidol [Haldol] 0.5 mg PO 12,20 01/11/18 [History] Hydrochlorothiazide 12.5 mg PO DAILY 01/11/18 [History] LORazepam 0.5 mg PO 12,17 01/11/18 [History] Mirtazapine 15 mg PO BEDTIME 01/11/18 [History] Referrals: Tyler Buenrostro MD [Primary Care Provider] - Darryn Burton DO [Physician] - - Discharge Summary/Plan Comment DC Time >30 min.: No - General Info Date of Service: 01/19/18 - Patient Data Vitals - Most Recent: Last Vital Signs Temp 100.8 F H 01/18/18 08:00 Pulse 100 01/18/18 00:00 Resp 16 01/19/18 00:00 BP 110/58 L 01/18/18 00:00 Pulse Ox 90 L 01/18/18 00:00 Weight - Most Recent: 84.187 kg Imaging Impressions - Last 24 hrs: Reviewed in chart Lab Results - Last 24 hrs: Laboratory Tests 01/11/18 01/11/18 01/11/18 Range/Units 15:25 15:25 15:25 WBC 4.7 (4.5-12.0) X10-3/uL RBC 4.01 L (4.30-5.75) x10(6)uL Hgb 12.4 (11.5-15.5) g/dL Hct 36.8 (30.0-51.3) % MCV 91.7 (80-96) fL MCH 30.9 (27.7-33.6) pg MCHC 33.7 (32.2-35.4) g/dL RDW 12.7 (11.5-15.5) % Plt Count 183 (125-369) X10(3)uL MPV 7.9 (7.4-10.4) fL Neut % (Auto) 76.6 (46-82) % Lymph % (Auto) 11.3 L (13-37) % Lee % (Auto) 9.2 (4-12) % Eos % (Auto) 3 (1.0-5.0) % Baso % (Auto) 0 (0-2) % Neut # (Auto) 3.7 (1.6-8.3) # Lymph # (Auto) 0.5 L (0.6-5.0) # Lee # (Auto) 0.4 (0.0-1.3) # Eos # (Auto) 0.1 (0.0-0.8) # Baso # (Auto) 0.0 (0.0-0.2) # PT 11.0 (8.7-11.1) INR 1.09 (0.89-1.13) Sodium 138 (135-145) mmol/L Potassium 4.4 (3.5-5.3) mmol/L Chloride 101 (100-110) mmol/L Carbon Dioxide 28 (21-32) mmol/L BUN 34 H (7-18) mg/dL Creatinine 1.4 H (0.70-1.30) mg/dL Est Cr Clr Drug Dosing TNP Estimated GFR (MDRD) 48 L (>60) BUN/Creatinine Ratio 24.3 H (9-20) Glucose 96 (80-116) mg/dL Calcium 8.3 L (8.6-10.2) mg/dL Creatine Kinase 150 (60-160) IU/L Troponin I (<0.017-0.056) ng/mL Urine Color (YELLOW) Urine Appearance (CLEAR) Urine pH (5.0-6.5) Ur Specific [place] (1.010-1.025) Urine Protein (NEGATIVE) mg/dL Urine Glucose (UA) (NEGATIVE) mg/dL Urine Ketones (NEGATIVE) mg/dL Urine Occult Blood (NEGATIVE) Urine Nitrite (NEGATIVE) Urine Bilirubin (NEGATIVE) Urine Urobilinogen (NEGATIVE) mg/dL Ur Leukocyte Esterase (NEGATIVE) Urine RBC (0) Urine WBC (0) Ur Squamous Epith Cells (NS,R,O) Urine Bacteria (NS) Hyaline Casts (NS) 01/11/18 01/12/18 01/13/18 Range/Units 15:25 06:40 10:57 WBC 6.3 11.5 (4.5-12.0) X10-3/uL RBC 3.69 L 3.27 L (4.30-5.75) x10(6)uL Hgb 11.3 L 9.8 L (11.5-15.5) g/dL Hct 33.5 29.8 L (30.0-51.3) % MCV 90.6 91.2 (80-96) fL MCH 30.5 30.0 (27.7-33.6) pg MCHC 33.6 32.9 (32.2-35.4) g/dL RDW 12.5 12.8 (11.5-15.5) % Plt Count 148 174 (125-369) X10(3)uL MPV 7.9 (7.4-10.4) fL Neut % (Auto) 78.0 (46-82) % Lymph % (Auto) 7.6 L (13-37) % Lee % (Auto) 13.2 H (4-12) % Eos % (Auto) 1 (1.0-5.0) % Baso % (Auto) 0 (0-2) % Neut # (Auto) 4.9 (1.6-8.3) # Lymph # (Auto) 0.5 L (0.6-5.0) # Lee # (Auto) 0.8 (0.0-1.3) # Eos # (Auto) 0.1 (0.0-0.8) # Baso # (Auto) 0.0 (0.0-0.2) # PT (8.7-11.1) INR (0.89-1.13) Sodium (135-145) mmol/L Potassium (3.5-5.3) mmol/L Chloride (100-110) mmol/L Carbon Dioxide (21-32) mmol/L BUN (7-18) mg/dL Creatinine (0.70-1.30) mg/dL Est Cr Clr Drug Dosing Estimated GFR (MDRD) (>60) BUN/Creatinine Ratio (9-20) Glucose (80-116) mg/dL Calcium (8.6-10.2) mg/dL Creatine Kinase (60-160) IU/L Troponin I < 0.017 L (<0.017-0.056) ng/mL Urine Color (YELLOW) Urine Appearance (CLEAR) Urine pH (5.0-6.5) Ur Specific [place] (1.010-1.025) Urine Protein (NEGATIVE) mg/dL Urine Glucose (UA) (NEGATIVE) mg/dL Urine Ketones (NEGATIVE) mg/dL Urine Occult Blood (NEGATIVE) Urine Nitrite (NEGATIVE) Urine Bilirubin (NEGATIVE) Urine Urobilinogen (NEGATIVE) mg/dL Ur Leukocyte Esterase (NEGATIVE) Urine RBC (0) Urine WBC (0) Ur Squamous Epith Cells (NS,R,O) Urine Bacteria (NS) Hyaline Casts (NS) 01/13/18 Range/Units 20:45 WBC (4.5-12.0) X10-3/uL RBC (4.30-5.75) x10(6)uL Hgb (11.5-15.5) g/dL Hct (30.0-51.3) % MCV (80-96) fL MCH (27.7-33.6) pg MCHC (32.2-35.4) g/dL RDW (11.5-15.5) % Plt Count (125-369) X10(3)uL MPV (7.4-10.4) fL Neut % (Auto) (46-82) % Lymph % (Auto) (13-37) % Lee % (Auto) (4-12) % Eos % (Auto) (1.0-5.0) % Baso % (Auto) (0-2) % Neut # (Auto) (1.6-8.3) # Lymph # (Auto) (0.6-5.0) # Lee # (Auto) (0.0-1.3) # Eos # (Auto) (0.0-0.8) # Baso # (Auto) (0.0-0.2) # PT (8.7-11.1) INR (0.89-1.13) Sodium (135-145) mmol/L Potassium (3.5-5.3) mmol/L Chloride (100-110) mmol/L Carbon Dioxide (21-32) mmol/L BUN (7-18) mg/dL Creatinine (0.70-1.30) mg/dL Est Cr Clr Drug Dosing Estimated GFR (MDRD) (>60) BUN/Creatinine Ratio (9-20) Glucose (80-116) mg/dL Calcium (8.6-10.2) mg/dL Creatine Kinase (60-160) IU/L Troponin I (<0.017-0.056) ng/mL Urine Color Yellow (YELLOW) Urine Appearance Clear (CLEAR) Urine pH 6.0 (5.0-6.5) Ur Specific [place] 1.015 (1.010-1.025) Urine Protein Negative (NEGATIVE) mg/dL Urine Glucose (UA) Normal (NEGATIVE) mg/dL Urine Ketones 15 H (NEGATIVE) mg/dL Urine Occult Blood Negative (NEGATIVE) Urine Nitrite Negative (NEGATIVE) Urine Bilirubin Negative (NEGATIVE) Urine Urobilinogen Normal (NEGATIVE) mg/dL Ur Leukocyte Esterase Moderate H (NEGATIVE) Urine RBC 0-5 (0) Urine WBC 0-5 (0) Ur Squamous Epith Cells Few H (NS,R,O) Urine Bacteria Few H (NS) Hyaline Casts Few H (NS) Med Orders - Current: Current Medications Discontinued Medications Albuterol (Proventil Neb Soln) 2.5 mg INH BID@0800,1999 [facility] Last Admin: 01/15/18 07:20 Dose: 2.5 mg Albuterol (Proventil Neb Soln) 2.5 mg INH Q6H PRN PRN Reason: Dyspnea Cefazolin Sodium (Ancef) 2 gm IVPUSH Q8H [facility] Last Admin: 01/14/18 02:02 Dose: 2 gm Cefazolin Sodium (Ancef) Confirm Administered Dose 1 gm .ROUTE .STK-MED ONE Stop: 01/13/18 02:13 Last Admin: 01/13/18 02:47 Dose: Not Given Cefazolin Sodium (Ancef) Confirm Administered Dose 1 gm .ROUTE .STK-MED ONE Stop: 01/13/18 18:26 Last Admin: 01/13/18 18:51 Dose: Not Given Cefazolin Sodium (Ancef) 2 gm IV .STK-MED ONE Stop: 01/12/18 09:46 Divalproex Sodium (Depakote Sprinkle) 375 mg PO TID@0800,1400,2000 [facility] Last Admin: 01/15/18 13:01 Dose: Not Given Duloxetine HCl (Cymbalta) 20 mg PO BEDTIME [facility] Last Admin: 01/14/18 20:47 Dose: 20 mg Enoxaparin Sodium (Lovenox) 30 mg SUBCUT Q24H [facility] Last Admin: 01/15/18 10:59 Dose: 30 mg Ephedrine Sulfate (Ephedrine Sulfate) 30 mg IV .STK-MED ONE Stop: 01/12/18 09:46 Esmolol HCl (Esmolol) 20 mg IV .STK-MED ONE Stop: 01/12/18 09:46 Fentanyl (Sublimaze) 200 mcg IV .STK-MED ONE Stop: 01/12/18 09:46 Furosemide (Lasix) 40 mg IM NOW STA Stop: 01/15/18 08:30 Last Admin: 01/15/18 08:44 Dose: 40 mg Gabapentin (Neurontin) 50 mg PO Q2H PRN PRN Reason: Pain, Anxiety, Restlessness Gabapentin (Neurontin) 200 mg PO 0800,1200,1600,2000 [facility] Last Admin: 01/13/18 11:04 Dose: Not Given Gabapentin (Neurontin) 200 mg PO BID@0800,1200 [facility] Last Admin: 01/13/18 11:11 Dose: 200 mg Gabapentin (Neurontin) 200 mg PO BID@1600,2000 [facility] Gabapentin (Neurontin) 200 mg PO QID@08,12,16,20 [facility] Last Admin: 01/15/18 16:57 Dose: Not Given Gabapentin (Neurontin) 50 mg PO Q2H PRN PRN Reason: Pain, Anxiety, Restlessness Glycopyrrolate (Glycopyrrolate) 0.4 mg IV .STK-MED ONE Stop: 01/12/18 09:46 Haloperidol (Haldol) 0.5 mg PO BID@1200,2000 [facility] Last Admin: 01/15/18 13:01 Dose: Not Given Haloperidol (Haldol) 2 mg PO ONETIME ONE Stop: 01/12/18 21:01 Last Admin: 01/12/18 21:39 Dose: 2 mg Haloperidol Lactate (Haldol) 2 mg IM Q1H PRN PRN Reason: agitation - max of 3 doses Last Admin: 01/15/18 20:55 Dose: 2 mg Hydrochlorothiazide (Hydrochlorothiazide) 12.5 mg PO DAILY [facility] Last Admin: 01/15/18 10:34 Dose: Not Given Sodium Chloride (Normal Saline) 1,000 mls @ 125 mls/hr IV ASDIRECTED [facility] Last Infusion: 01/11/18 23:45 Dose: 20 mls/hr Sodium Chloride (Normal Saline) 1,000 mls @ 0 mls/hr IV ASDIRECTED [facility] Cefazolin Sodium/Dextrose 2 gm (/ Premix) 50 mls @ 100 mls/hr IV Q8H [facility] Stop: 01/13/18 01:29 Last Admin: 01/12/18 17:00 Dose: Not Given Lactated Ringer's (Ringers, Lactated) 1,000 mls @ as directed IV .STK-MED ONE Stop: 01/12/18 09:46 Lorazepam (Ativan) 0.5 mg IVPUSH ONETIME ONE Stop: 01/12/18 04:09 Last Admin: 01/12/18 04:30 Dose: 0.5 mg Lorazepam (Ativan) 0.5 mg PO BID@1200,1700 IN[facility] Lorazepam (Ativan) 0.5 mg PO BID@1200,1700 [facility] Last Admin: 01/15/18 19:06 Dose: Not Given Lorazepam (Ativan) 1 mg SUBCUT Q2H PRN PRN Reason: Agitation/Muscle Twitching Last Admin: 01/17/18 17:51 Dose: 1 mg Midazolam HCl (Versed 1 Mg/Ml) 4 mg IV .STK-MED ONE Stop: 01/12/18 09:46 Mirtazapine (Remeron) 15 mg PO BEDTIME [facility] Last Admin: 01/14/18 20:47 Dose: 15 mg Morphine Sulfate (Morphine) 2 mg IVPUSH Q2H PRN PRN Reason: Pain (severe 7-10) Last Admin: 01/14/18 06:15 Dose: 2 mg Morphine Sulfate (Morphine) 1 mg SUBCUT Q2H PRN PRN Reason: respiratory distress Last Admin: 01/16/18 09:08 Dose: 1 mg Morphine Sulfate (Morphine 10 Mg/0.5 Ml Oral Syringe) 5 mg SL Q30M PRN PRN Reason: Pain Last Admin: 01/19/18 13:29 Dose: 5 mg Ondansetron HCl (Zofran) 4 mg IV Q4H PRN PRN Reason: Nausea/Vomiting Ondansetron HCl (Zofran) 4 mg IVPUSH .STK-MED ONE Stop: 01/12/18 09:46 Oxycodone/Acetaminophen (Percocet 325-5 Mg) 1 tab PO Q6H PRN PRN Reason: Pain Last Admin: 01/15/18 05:35 Dose: 1 tab Phenylephrine HCl (Wade-Synephrine) 0.6 mg IV .STK-MED ONE Stop: 01/12/18 09:46 Propofol (Diprivan 20 Ml) 200 mg IV .STK-MED ONE Stop: 01/12/18 09:46 Rocuronium [place] (Zemuron) 30 mg IV .STK-MED ONE Stop: 01/12/18 09:46 Scopolamine (Transderm-Scop) 1.5 mg TOP ONETIME ONE Stop: 01/15/18 08:31 Last Admin: 01/15/18 08:47 Dose: 1.5 mg Scopolamine (Transderm-Scop) 1.5 mg TOP Q72H ONE Stop: 01/18/18 10:01 Last Admin: 01/18/18 10:24 Dose: 1.5 mg Scopolamine (Transderm-Scop) 1.5 mg TOP Q72H INGE Sodium Chloride (Saline Flush) 10 ml FLUSH ASDIRECTED PRN PRN Reason: Keep Vein Open Last Admin: 01/14/18 06:15 Dose: 10 ml - Exam Physical Findings Comments:: Mr. Ty at 1:36 PM. I assessed him for signs of any cardiopulmonary activity via auscultation and palpation for central and peripheral pulses. There were none. He was surrounded by his family and is at peace.
== END 2018-01-19 13:36 | disposition expired | DRG 480 ==
LOC: FB.ED 15:06 → FB.MS 17:11
PROVIDERS: ADMIT Family Medicine; ATTEND Family Medicine
PROC: 0QH736Z Insertion of Intramedullary Internal Fixation Device into Left Upper Femur, Percutaneous Approach (ICD-10-PCS; principal; 2018-01-12)
DX: S72.145A Nondisplaced intertrochanteric fracture of left femur, initial encounter for closed fracture (principal); I63.9 Cerebral infarction, unspecified; I21.9 Acute myocardial infarction, unspecified; Z51.5 Encounter for palliative care; W19.XXXA Unspecified fall, initial encounter; Y92.099 Unspecified place in other non-institutional residence as the place of occurrence of the external cause; Z66 Do not resuscitate; F02.81 Dementia in other diseases classified elsewhere, unspecified severity, with behavioral disturbance; M25.552 Pain in left hip; R33.9 Retention of urine, unspecified; N47.1 Phimosis; I10 Essential (primary) hypertension; M25.512 Pain in left shoulder; G30.9 Alzheimer's disease, unspecified; F02.80 Dementia in other diseases classified elsewhere, unspecified severity, without behavioral disturbance, psychotic disturbance, mood disturbance, and anxiety; Z87.891 Personal history of nicotine dependence; I25.2 Old myocardial infarction; G25.81 Restless legs syndrome; F41.9 Anxiety disorder, unspecified; G89.29 Other chronic pain; Z86.73 Personal history of transient ischemic attack (TIA), and cerebral infarction without residual deficits; Z95.5 Presence of coronary angioplasty implant and graft; H54.7 Unspecified visual loss; H91.90 Unspecified hearing loss, unspecified ear; Z88.8 Allergy status to other drugs, medicaments and biological substances; Z86.718 Personal history of other venous thrombosis and embolism; Z79.01 Long term (current) use of anticoagulants
CPT/HCPCS: 36415; 71045; 72192; 73020-LT; 73501-LT; 76000; 80048; 81001; 82550; 84484; 85025; 85027; 85610; 93005; 93010; 94640; 96374; 99284; 99285; A9270-GY; C1713; J0690; J1630; J1650; J1940; J2060; J2250; J2270; J2370; J2405; J2704; J3010; J3490; J7040; J7050; J7120